=== PATIENT | male | born 1975 | race Caucasian/White ===

== ENCOUNTER 2017-02-16 11:07 | Emergency (ER) | payer BC, OTHER ==
[2017-02-16 11:44] VITALS: BP 134/69
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
[2017-02-16] MEDS ORDERED: Ibuprofen TAB* 400 MG PO ONE (12:19)
== END 2017-02-16 12:26 | disposition home or self-care (01) ==
LOC: UCCORT 11:07
DX: S09.8XXA Other specified injuries of head, initial encounter (principal); Y04.0XXA Assault by unarmed brawl or fight, initial encounter; Y93.9 Activity, unspecified; Y99.9 Unspecified external cause status; E11.9 Type 2 diabetes mellitus without complications; Z79.4 Long term (current) use of insulin; J45.909 Unspecified asthma, uncomplicated
CPT/HCPCS: 99212; A9270-GY; G0463

== ENCOUNTER 2017-02-17 09:45 | Emergency (ER) | payer OTHER ==
[2017-02-17 11:17] VITALS: BP 115/68
--- NOTE | 2017-02-17 11:52 | RAD ---
Indication: Neck pain with radiation to the shoulder blades. Fell hitting head yesterday. Comparison: November 25, 2010 Technique: AP, open-mouth odontoid, lateral, swimmer's, and oblique views cervical spine. Report: Straightening relative to normal cervical lordosis similar to the prior exam without facet subluxation at any level. Negative for vertebral body posterior element fracture. Multilevel mild vertebral endplate osteophytosis. Moderate C5-C6 and C6-C7 disc space narrowing. The oblique views are negative for osseous foraminal stenosis. 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 Unremarkable prevertebral soft tissue contours. IMPRESSION: 1. Straightening relative to normal cervical lordosis similar to the prior exam without facet subluxation at any level. 2. Negative for fracture. 3. Progression of multilevel degenerative spondylosis compared with the 2011 exam.
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
== END 2017-02-17 12:07 | disposition home or self-care (01) ==
LOC: UCCORT 09:45
DX: S16.1XXD Strain of muscle, fascia and tendon at neck level, subsequent encounter (principal); W50.0XXD Accidental hit or strike by another person, subsequent encounter; E11.9 Type 2 diabetes mellitus without complications; I10 Essential (primary) hypertension; J45.909 Unspecified asthma, uncomplicated
CPT/HCPCS: 72050; 99212; G0463

== ENCOUNTER 2017-07-20 08:23 | Emergency (ER) | payer BC, OTHER ==
[2017-07-20 08:32] VITALS: BP 135/76
--- NOTE | 2017-07-20 08:50 | UC ---
Respiratory Complaint HPI - HPI Summary HPI Summary: 2 weeks of continuing bronchial tightness with cough, - History of Current Complaint Chief Complaint: UCRespiratory Stated Complaint: COLD SYMPTOMS Time Seen by Provider: 07/20/17 08:41 Hx Obtained From: Patient Onset/Duration: Gradual Onset, Lasting Weeks - 2, Still Present Timing: Constant Severity Initially: Mild Severity Currently: Moderate Pain Intensity: 3 Pain Scale Used: 0-10 Numeric Character: Cough: Productive, Sputum Description: - thick green Aggravating Factors: Nothing Alleviating Factors: Nothing Associated Signs And Symptoms: Positive: Pleuritic Chest Pain, Wheezing, URI - Allergies/Home Medications Allergies/Adverse Reactions: Allergies Allergy/AdvReac Type Severity Reaction Status Date / Time No Known Allergies Allergy Verified 07/20/17 08:33 PMH/Surg Hx/FS Hx/Imm Hx Previously Healthy: No Endocrine History: Diabetes GI/ History: Other Other GI/ History: Pancreatitis - Surgical History Surgical History: Yes Surgery Procedure, Year, and Place: 8 sets EAR TUBE SURGERIES R/L A CHILD, [place]. 1998; RIGHT KNEE, [facility]. 1996 TONSILECTOMY [facility]. LEFT KNEE REPAIR JANUARY 2013 [facility] - Family History Known Family History: Positive: None, Cardiac Disease, Hypertension, Diabetes - Social History Occupation: Employed Full-time Lives: With Family Alcohol Use: None Alcohol Amount: once a week Substance Use Type: None Smoking Status (MU): Never Smoked Tobacco - Immunization History Most Recent Influenza Vaccination: NONE Review of Systems Constitutional: Negative Skin: Negative Eyes: Negative ENT: Ear Ache, Nasal Discharge Respiratory: Cough Cardiovascular: Negative Gastrointestinal: Negative Genitourinary: Negative Motor: Negative Neurovascular: Negative Musculoskeletal: Negative Neurological: Negative Psychological: Negative Is Patient Immunocompromised?: No All Other Systems Reviewed And Are Negative: Yes Physical Exam Triage Information Reviewed: Yes Appearance: Well-Appearing, No Pain Distress, Obese Vital Signs: Initial Vital Signs Temp 96.5 F 07/20/17 08:27 Pulse 77 07/20/17 08:27 Resp 18 07/20/17 08:27 BP 135/76 07/20/17 08:27 Pulse Ox 98 07/20/17 08:27 Vital Signs Reviewed: Yes Eye Exam: Normal Eyes: Positive: Conjunctiva Clear ENT Exam: Normal ENT: Positive: Normal ENT inspection, Hearing grossly normal, Pharynx normal, TMs normal. Negative: Nasal congestion, Nasal drainage, Trismus, Muffled/ hoarse voice Dental Exam: Normal Neck exam: Normal Neck: Positive: Supple, Nontender, No Lymphadenopathy Respiratory Exam: Normal Respiratory: Positive: Chest non-tender, No respiratory distress, No accessory muscle use, Wheezing Cardiovascular Exam: Normal Cardiovascular: Positive: RRR, No Murmur, Pulses Normal, Brisk Capillary Refill Musculoskeletal Exam: Normal Musculoskeletal: Positive: Strength Intact, ROM Intact, No Edema Neurological Exam: Normal Neurological: Positive: Alert, Muscle Tone Normal Psychological Exam: Normal Skin Exam: Normal UC Diagnostic Evaluation - Laboratory O2 Sat by Pulse Oximetry: 98 Respiratory Course/Dx - Course Course Of Treatment: Biaxin, albuterol, robitussin and codiene increase fluids follow with pcp - Differential Dx/Diagnosis Provider Diagnoses: Acute Bronchitis with Bronchospasms Discharge - Discharge Plan Condition: Stable Disposition: HOME Prescriptions: Albuterol HFA INHALER* [Ventolin HFA Inhaler*] 2 puff INH Q4H PRN #1 mdi PRN Reason: cough/wheeze Clarithromycin TAB* [Biaxin 500 MG TAB*] 500 mg PO BID #20 tab guaiFENesin/CODIEN 100MG-10MG* [Robitussin AC 100Mg-10Mg*] 10 ml PO Q4H PRN # 120 ml MDD 60 PRN Reason: cough Patient Education Materials: How to Use a Metered-Dose Inhaler (ED), Acute Bronchitis (ED) Referrals: Ramonita Faye MD [Primary Care Provider] - If Needed
== END 2017-07-20 09:09 | disposition home or self-care (01) ==
LOC: UCCORT 08:23
DX: J20.9 Acute bronchitis, unspecified (principal); E11.9 Type 2 diabetes mellitus without complications
CPT/HCPCS: 99212; G0463

== ENCOUNTER 2017-08-30 12:38 | Emergency (ER) | payer BC ==
[2017-08-30 15:56] VITALS: BP 128/69
--- NOTE | 2017-08-30 16:21 | UC ---
Respiratory Complaint HPI - HPI Summary HPI Summary: Started URI x 3 days. Worse last night with wheezing. - History of Current Complaint Chief Complaint: UCRespiratory Stated Complaint: CHEST RONALD,ST Time Seen by Provider: 08/30/17 16:11 Hx Obtained From: Patient Onset/Duration: Sudden Onset, Lasting Days - 3, Worse Since - last night Timing: Constant Severity Initially: Mild Severity Currently: Moderate Character: Cough: Nonproductive Associated Signs And Symptoms: Positive: Dyspnea, Wheezing, URI, Nasal Congestion, Hoarseness. Negative: Fever, Chills Related History: Seasonal Allergies - Allergies/Home Medications Allergies/Adverse Reactions: Allergies Allergy/AdvReac Type Severity Reaction Status Date / Time No Known Allergies Allergy Verified 08/30/17 15:50 PMH/Surg Hx/FS Hx/Imm Hx Endocrine History: Diabetes Cardiovascular History: Hypertension - Surgical History Surgical History: Yes Surgery Procedure, Year, and Place: 8 sets EAR TUBE SURGERIES R/L A CHILD, [place]. 1998; RIGHT KNEE, [facility]. 1996 TONSILECTOMY [facility]. LEFT KNEE REPAIR JANUARY 2013 [facility] - Family History Known Family History: Positive: None, Cardiac Disease, Hypertension, Diabetes - Social History Occupation: Employed Full-time Lives: With Family Alcohol Use: None Alcohol Amount: once a week Substance Use Type: None Smoking Status (MU): Never Smoked Tobacco - Immunization History Most Recent Influenza Vaccination: no Review of Systems ENT: Sore Throat Respiratory: Shortness Of Breath, Cough Is Patient Immunocompromised?: No All Other Systems Reviewed And Are Negative: Yes Physical Exam Triage Information Reviewed: Yes Appearance: No Pain Distress, Ill-Appearing, Obese Vital Signs: Initial Vital Signs Temp 97.2 F 08/30/17 15:51 Pulse 80 08/30/17 15:51 Resp 18 08/30/17 15:51 BP 128/69 08/30/17 15:51 Pulse Ox 98 08/30/17 15:51 Vital Signs Reviewed: Yes Eyes: Positive: Conjunctiva Clear ENT: Positive: Pharynx normal, Nasal congestion, TM dull - , not visable AD Neck exam: Normal Respiratory: Positive: Wheezing - Diffuse expiratory wheezes. Cardiovascular Exam: Normal Musculoskeletal Exam: Normal Neurological Exam: Normal Psychological Exam: Normal Skin Exam: Normal UC Diagnostic Evaluation - Laboratory O2 Sat by Pulse Oximetry: 98 Respiratory Course/Dx - Differential Dx/Diagnosis Differential Diagnosis/HQI/PQRI: Asthma, Exacerbation Of COPD, Sinusitis Provider Diagnoses: Acute URI. Acute bronchospasm Discharge - Discharge Plan Condition: Stable Disposition: HOME Prescriptions: Albuterol HFA INHALER* [Ventolin HFA Inhaler*] 2 puff INH Q4H PRN #1 mdi PRN Reason: Wheezing predniSONE TAB* [Deltasone TAB*] 20 mg PO DAILY #18 tab Patient Education Materials: Upper Respiratory Infection (ED), Bronchospasm (ED ) Referrals: Ramonita Faye MD [Primary Care Provider] -
== END 2017-08-30 16:30 | disposition home or self-care (01) ==
LOC: UCCORT 12:38
DX: J06.9 Acute upper respiratory infection, unspecified (principal); J98.01 Acute bronchospasm; E11.9 Type 2 diabetes mellitus without complications; I10 Essential (primary) hypertension; E66.9 Obesity, unspecified
CPT/HCPCS: 99212; G0463

== ENCOUNTER 2017-11-09 15:31 | Emergency (ER) | payer BC ==
[2017-11-09 18:59] VITALS: BP 141/74
--- NOTE | 2017-11-09 19:08 | ED ---
Throat Pain/Nasal Congestion - HPI Summary HPI Summary: 41 yr old with the complaint of sinus pressure, post nasal drip, coughing, and left ear pain. He states he has had symptoms for 5 days. he feels he has a sinus infection. He has had them before. Denies smoking. - History of Current Complaint Chief Complaint: UCRespiratory Time Seen by Provider: 11/09/17 18:52 - Allergies/Home Medications Allergies/Adverse Reactions: Allergies Allergy/AdvReac Type Severity Reaction Status Date / Time No Known Allergies Allergy Verified 11/09/17 18:59 PMH/Surg Hx/FS Hx/Imm Hx Endocrine/Hematology History: Reports: Hx Diabetes - type II Denies: Hx Thyroid Disease Cardiovascular History: Reports: Hx Hypertension - borderline, not on meds Denies: Hx Pacemaker/ICD, Other Cardiovascular Problems/Disorders Respiratory History: Reports: Hx Asthma, Hx Sleep Apnea Denies: Hx Chronic Obstructive Pulmonary Disease (COPD), Hx Lung Cancer, Other Respiratory Problems/Disorders GI History: Denies: Hx Ulcer, Other GI Disorders Musculoskeletal History: Denies: Hx Rheumatoid Arthritis, Hx Osteoporosis Sensory History: Reports: Hx Contacts or Glasses - no glasses inst for day of surgery Denies: Hx Hearing Aid Opthamlomology History: Reports: Hx Contacts or Glasses - no glasses inst for day of surgery Neurological History: Denies: Hx Transient Ischemic Attacks (TIA), Other Neuro Impairments/ Disorders Psychiatric History: Denies: Hx Anxiety, Hx Panic Disorder - Surgical History Surgery Procedure, Year, and Place: 8 sets EAR TUBE SURGERIES R/L A CHILD, [place]. 1998; RIGHT KNEE, [facility]. 1996 TONSILECTOMY [facility]. LEFT KNEE REPAIR JANUARY 2013 [facility] Hx Anesthesia Reactions: Yes - NAUSEA AND VOMITING Infectious Disease History: No Infectious Disease History: Denies: Hx Clostridium Difficile, Hx Hepatitis, Hx Human Immunodeficiency Virus (HIV), Hx of Known/Suspected MRSA, Hx Shingles, Hx Tuberculosis, Hx Known/ Suspected VRE, Hx Known/Suspected VRSA, History Other Infectious Disease, Traveled Outside the in Last 30 Days - Family History Known Family History: Positive: None, Cardiac Disease, Hypertension, Diabetes - Social History Alcohol Use: None Alcohol Amount: once a week Substance Use Type: Reports: None Smoking Status (MU): Never Smoked Tobacco Review of Systems Constitutional: Negative Positive: Ear Ache, Nasal Discharge, Other - post nasal drip and sinus pressure Positive: Cough All Other Systems Reviewed And Are Negative: Yes Physical Exam Triage Information Reviewed: Yes Vital Signs On Initial Exam: Initial Vitals Temp Pulse Resp BP Pulse Ox 97.9 F 78 16 141/74 98 11/09/17 18:52 11/09/17 18:52 11/09/17 18:52 11/09/17 18:52 11/09/17 18:52 Vital Signs Reviewed: Yes Appearance: Positive: Well-Appearing, No Pain Distress Skin: Positive: Warm, Skin Color Reflects Adequate Perfusion Head/Face: Positive: Normal Head/Face Inspection Eyes: Positive: EOMI ENT: Positive: Nasal congestion, TM red - left, Sinus tenderness Neck: Positive: Supple, Nontender Respiratory/Lung Sounds: Positive: Clear to Auscultation, Breath Sounds Present Cardiovascular: Positive: RRR. Negative: Murmur Abdomen Description: Positive: Nontender Musculoskeletal: Positive: Strength/ROM Intact Neurological: Positive: Sensory/Motor Intact, Alert, Oriented to Person Place, Time, CN Intact II-III Psychiatric: Positive: Normal - [place] Coma Scale Best Eye Response: 4 - Spontaneous Best Motor Response: 6 - Obeys Commands Best Verbal Response: 5 - Oriented Coma Scale Total: 15 Diagnostics - Vital Signs Vital Signs Temp Pulse Resp BP Pulse Ox 11/09/17 18:52 97.9 F 78 16 141/74 98 - Laboratory Lab Statement: Any lab studies that have been ordered have been reviewed, and results considered in the medical decision making process. EENT Course/Dx - Course Course Of Treatment: 41 yr old with sinus infection. Rx with Augmentin. Dc home. - Diagnoses Provider Diagnoses: Sinusitis Discharge - Discharge Plan Condition: Good Disposition: HOME Prescriptions: Amoxicillin/Clavulanate TAB* [Augmentin TAB 875*] 875 mg PO BID #10 tab Patient Education Materials: Sinusitis (ED) Forms: *Work Release Referrals: Ramonita Faye MD [Primary Care Provider] -
== END 2017-11-09 19:16 | disposition home or self-care (01) ==
LOC: UCCORT 15:31
DX: J32.9 Chronic sinusitis, unspecified (principal); Z72.89 Other problems related to lifestyle
CPT/HCPCS: 99212; G0463

== ENCOUNTER 2017-11-28 21:50 | Emergency (ER) | payer BC ==
--- NOTE | 2017-11-28 22:07 | UC ---
Respiratory Complaint HPI - HPI Summary HPI Summary: C/O URI symptoms. Productive cough. Wheezing. - History of Current Complaint Stated Complaint: COUGH,LIGHT HEADED Time Seen by Provider: 11/28/17 21:59 Hx Obtained From: Patient Onset/Duration: Sudden Onset, Lasting Days - 2, Worse Since - today Timing: Constant Severity Initially: Mild Severity Currently: Moderate Character: Cough: Productive Aggravating Factors: Deep Breaths, Recumbent Position Associated Signs And Symptoms: Positive: Dyspnea, Pleuritic Chest Pain, Wheezing , URI, Nasal Congestion Related History: Seasonal Allergies - Allergies/Home Medications Allergies/Adverse Reactions: Allergies Allergy/AdvReac Type Severity Reaction Status Date / Time No Known Allergies Allergy Verified 11/28/17 21:58 PMH/Surg Hx/FS Hx/Imm Hx Endocrine History: Diabetes Respiratory History: Asthma - Surgical History Surgical History: Yes Surgery Procedure, Year, and Place: 8 sets EAR TUBE SURGERIES R/L A CHILD, [place]. 1998; RIGHT KNEE, [facility]. 1996 TONSILECTOMY [facility]. LEFT KNEE REPAIR JANUARY 2013 [facility] - Family History Known Family History: Positive: Cardiac Disease, Hypertension, Diabetes - Social History Occupation: Employed Full-time Lives: With Family Alcohol Use: None Alcohol Amount: once a week Substance Use Type: None Smoking Status (MU): Never Smoked Tobacco Have You Smoked in the Last Year: No - Immunization History Most Recent Influenza Vaccination: no Review of Systems Constitutional: Chills Respiratory: Shortness Of Breath, Cough Cardiovascular: Chest Pain - with coughing Is Patient Immunocompromised?: No All Other Systems Reviewed And Are Negative: Yes Physical Exam Triage Information Reviewed: Yes Appearance: No Pain Distress, Ill-Appearing, Obese Vital Signs Reviewed: Yes Eyes: Positive: Conjunctiva Clear ENT: Positive: Pharynx normal. Negative: TMs normal - left TM with perforation. Right TM not visable with wax. Neck exam: Normal Respiratory: Positive: Wheezing - mild expiratory wheezes Cardiovascular Exam: Normal Musculoskeletal Exam: Normal Neurological Exam: Normal Neurological: Positive: Fatigued Psychological Exam: Normal Skin Exam: Normal Respiratory Course/Dx - Differential Dx/Diagnosis Differential Diagnosis/HQI/PQRI: Asthma, Lower Resp Infection, Sinusitis Provider Diagnoses: Acute URI. Asthma with acute exacerbation Discharge - Discharge Plan Condition: Stable Disposition: HOME Prescriptions: predniSONE TAB* [Deltasone TAB*] 20 mg PO DAILY #18 tab Patient Education Materials: Upper Respiratory Infection (ED), Wheezing (ED), Prednisone (By mouth) Referrals: Ramonita Faye MD [Primary Care Provider] -
[2017-11-28 22:13] VITALS: BP 154/77
[2017-11-28] MEDS ORDERED: predniSONE TAB* 20 MG PO ONE (22:13)
== END 2017-11-28 22:23 | disposition home or self-care (01) ==
LOC: UCCORT 21:50
DX: J06.9 Acute upper respiratory infection, unspecified (principal); J45.901 Unspecified asthma with (acute) exacerbation
CPT/HCPCS: 99212; G0463; J7512

== ENCOUNTER 2018-09-16 12:37 | Emergency (ER) | payer BC ==
--- OUTSIDE RECORDS SUMMARY | 2018-09-16 12:46 | XMS REPORT ---
:1975 External Reference #:[id number] Author Organization [facility] Address [address], [address] [place] [address] Phone [phone] Care Team Providers Name Role Phone Ramonita Faye MD Care Team Information Slot Operations Manager Unavailable Benoit Hu NP Primary Care Physician Unavailable Payers Type Date Identification Numbers Payment Provider Subscriber Commercial Policy Number: [id number] Mauro Beasley PayID: [id number] [address] [address] [place] [address] Problems Date Description Provider Status Onset: 08/01/2016 Chest pain Komal Frazier., ANP Active Onset: 08/01/2016 Dyspnea Komal Frazier., ANP Active Onset: 08/01/2016 Palpitations Komal Frazier., ANP Active Onset: 08/01/2016 Obesity Komal Frazier., ANP Active Onset: 08/01/2016 Mixed hyperlipidemia Komal Frazier., ANP Active Onset: 10/08/2017 Essential hypertension Sinan Meléndez M.D., Active FACC Onset: 10/08/2017 Type 2 diabetes mellitus Sinan Meléndez M.D., Active FACC Onset: 09/03/2016 History of polyp of colon Ab Bravo MD Active Onset: 09/03/2016 Pancreatitis Ab Bravo MD Active Onset: 09/03/2016 Other diseases of stomach and Ab Bravo MD Active duodenum Onset: 09/03/2016 Chronic nonalcoholic liver Ab Bravo MD Active disease Family History Date Family Member(s) Problem(s) Comments Father due to Diabetes () Father Stroke Father due to Stroke () Father Hypertension Father Diabetes Mother Diverticulitis Mother Atrial Fibrillation First Brother 40 Paternal Grandfather due to Unknown Causes () Paternal Grandfather Diabetes Paternal Grandmother Pancreatic Cancer : (age 82 Paternal Grandmother due to Pancreatic Years) Cancer Onset: (age 80 Years) Maternal Grandmother Colon Cancer : (age 84 Maternal Grandmother due to Colon Cancer Years) Social History Type Date Description Comments Marital Status Lives With Lives With Child 4 total Home Environment Lives With Diet Patient is on a low carb diet 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 - [employer] 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 Working ADL's/IADL's Independent with all ADL's Cigarette Use Never Smoked Cigarettes ETOH Use Denies alcohol use Smoking Patient denies history of smoking Recreational Drug Use Denies Drug Use Daily Caffeine Consumes on average 2 cups of regular coffee per day Exercise Type/Frequency Exercises regularly Allergies, Adverse Reactions, Alerts Date Description Reaction Status Severity Comments 01/03/2013 NKDA active Medications Medication Date Status Form Strength Qnty SIG Indications Ordering Provider Fenofibrate 08/18/ Active Capsules 200mg 90cap 1 by mouth E78.2 Melissa Berger 2015 s every day Yonatan Gillette Metformin HCL / Active Tablets 500mg 1 tab by Unknown ER (Mod) 0000 ER 24HR mouth twice a day Glipizide / Active Tablets 5mg 1 po bid Law, 0000 MD Mc Lantus / Active Solution 100Unit/M 27units once E11.9 Unknown 0000 L daily Humalog Kwikpen 08/18/ Hx Solution 100Unit/M 15uni 15u before E11.9 Ranjit2015 - Pen-Injec L ts meals Leta, M.D. 2016 Invokana 08/18/ Hx Tablets 100mg 90tab 1 by mouth E11.2015 - s every day , M.D. 2016 Lantus Solostar 08/18/ Hx Solution 100Unit/M 15uni 50u E11.2015 Pen-Injec L ts subcutaneous , every day M.D. Multivitamins 00/00/ Hx Tablets 1 po qd Unknown 0000 Tricor / Hx Tablets 145mg one Po q day. Valdez, 0000 MD Korey Lange / Hx Solution 100Unit/M s/s before Unknown 0000 - Pen-Injec L meals 2015 Lantus Solostar / Hx Solution 100Unit/M 30u Unknown 0000 - Pen-Injec L subcutaneous every day 2015 Fenofibrate / Hx Tablets 145mg 1 by mouth Unknown 0000 every day Naproxen Sodium / Hx Capsules 220mg as needed Unknown 0000 - 2016 Oxycodone-Aceta / Hx Tablets 5-325mg 1-2 by mouth Unknown minophen 0000 every 4 hours as needed for pain Ondansetron / Hx Tablets 4mg 1 by mouth Unknown 0000 - Dispers every 4 hour as needed 2016 Vital Signs Date Vital Result Comment 08/12/2018 BP Systolic Sitting Left Arm 138 mmHg BP Diastolic Sitting Left Arm 84 mmHg Heart Rate 88 /min Respiratory Rate 18 /min Height 69 inches 5'9" Weight 383.00 lb BMI (Body Mass Index) 56.6 kg/m2 BSA (Body Surface Area) 2.72 m2 [place] body weight in kilograms 73 10/08/2017 BP Systolic Sitting Left Arm 134 mmHg BP Diastolic Sitting Left Arm 84 mmHg Heart Rate 75 /min Respiratory Rate 14 /min Height 69 inches 5'9" Weight 340.00 lb BMI (Body Mass Index) 50.2 kg/m2 BSA (Body Surface Area) 2.59 m2 [place] body weight in kilograms 73 10/06/2017 BP Systolic Sitting Right Arm 128 mmHg BP Diastolic Sitting Right Arm 74 mmHg Heart Rate 80 /min Respiratory Rate 18 /min Height 69 inches 5'9" Weight 340.00 lb BMI (Body Mass Index) 50.2 kg/m2 BSA (Body Surface Area) 2.59 m2 [place] body weight in kilograms 73 O2 % BldC Oximetry 95 % room air 08/13/2017 BP Systolic Sitting Right Arm 124 mmHg BP Diastolic Sitting Right Arm 77 mmHg Heart Rate 76 /min Height 69 inches 5'9" Weight 340.00 lb BMI (Body Mass Index) 50.2 kg/m2 BSA (Body Surface Area) 2.59 m2 [place] body weight in kilograms 73 09/03/2016 BP Systolic Sitting Left Arm 122 mmHg BP Diastolic Sitting Left Arm 82 mmHg Heart Rate 82 /min Respiratory Rate 16 /min Height 69 inches 5'9" Weight 370.00 lb BMI (Body Mass Index) 54.6 kg/m2 BSA (Body Surface Area) 2.68 m2 08/18/2016 BP Systolic 138 mmHg BP Diastolic 90 mmHg Height 69 inches 5'9" Weight 380.00 lb BMI (Body Mass Index) 56.1 kg/m2 BSA (Body Surface Area) 2.71 m2 07/31/2016 BP Systolic Sitting Left Arm 144 mmHg BP Diastolic Sitting Left Arm 88 mmHg Heart Rate 98 /min Respiratory Rate 20 /min Height 69 inches 5'9" Weight 399.00 lb BMI (Body Mass Index) 58.9 kg/m2 BSA (Body Surface Area) 2.77 m2 01/03/2013 BP Systolic Sitting Right Arm 150 mmHg BP Diastolic Sitting Right Arm 92 mmHg Heart Rate 88 /min Respiratory Rate 18 /min Height 69 inches 5'9" Weight 379.00 lb BMI (Body Mass Index) 56.0 kg/m2 Results Test Date Test Result H/L Range Note Urine Dipstick 08/12/2018 Ua Leuko - Negative Ua Nitrite - Negative Ua Urobilinogen - Low 0.2 - 1.0 E.U./dL Ua Protein - Negative Ua PH 6.5 6.5-7.5 Ua Blood - Negative Ua Specific [place] 1.015 1.010-1.030 Ua Ketones - Negative Ua Bilirubin - Negative Ua Glucose - Negative Celiac Disease Comp PNL 10/10/2016 Immunoglobulin A 281 mg/dL 90-386 1 Antigliadin Abs, IgG 2 units 0-19 1, 2 Antigliadin Abs, IgA 3 units 0-19 1, 3 Endomysial IgA Antibody Negative Negative 1 t-Transglutaminase IgA <2 U/mL 0-3 1, 4 t-Transglutaminase IgG <2 U/mL 0-5 1, 5 Glycohemoglobin A1c 10/10/2016 Glycohemoglobin (A1c) 6.0 % 4.2-6.3 1, 6 eAG 126 mg/dL 1 CBS W/Automated Diff 10/10/2016 White Blood Count 5.5 K/uL 3.4-10.5 1 Red Blood Count 5.17 M/uL 4.20-5.80 1 Hemoglobin 14.6 gm/dL 12.8-17.0 1 Hematocrit 45.2 % 38.0-48.0 1 Mean Cell Volume 87.4 fl 80.0-96.0 1 Mean Corpuscular HGB 28.2 pg 27.0-33.0 1 Mean Corpuscular HGB Conc 32.3 g/dL 31.7-36.0 1 Platelet Count 213 K/uL 150-400 1 Red Cell Distri Width SD 43.3 fl 36-51 1 Red Cell Distri Width %CV 13.9 % 11.6-15.8 1 Mean Platelet Volume 9.7 fL 6.6-10.6 1 Neut% 58.0 % 33.0-73.0 1 Lymph % 31.8 % 17.0-56.0 1 [place] % 8.4 % 0.0-10.0 1 Eo% 1.6 % 0.0-5.0 1 Bas% 0.2 % 0.1-1.0 1 Neut# 3.17 K/uL 1.8-7.0 1 Lymph # 1.74 K/uL Low 1.8-7.0 1 [place] # 0.46 K/uL 0.0-0.8 1 Eos # 0.09 K/uL 0.0-0.5 1 Baso # 0.01 K/uL Low 0.1-0.2 1 Laboratory test finding 10/10/2016 Sedimentation Rate 2 mm/hr 0-15 1 Liver Function Tests 10/10/2016 Total Protein 9.0 g/dL High 6.4-8.2 1 Albumin 4.7 g/dL 3.4-5.0 1 Globulin 4.3 g/dL 1.9-4.3 1 Alb/Glob 1.1 ratio 1 Bilirubin,Total 0.8 mg/dL 0.2-1.0 1 Bilirubin,Direct 0.2 mg/dL 0.0-0.2 1 Bilirubin,Indirect 0.6 mg/dL 0.0-0.9 1 Sgot/Ast 23 U/L 15-37 1 SGPT/Alt 34 U/L 12-78 1 Alkaline Phosphatase 36 U/L Low 45-117 1 Basic Metabolic Panel 10/10/2016 Glucose 94 mg/dL 74-106 1 BUN 18 mg/dL 7-18 1 Creatinine 1.0 mg/dL 0.6-1.3 1 Glom Filtration Rate, Estimate >60 mL/min >60 1 If >60 mL/min >60 1, 7 BUN/Creat 18.0 ratio 1 Sodium 139 mmol/L 136-145 1 Potassium 3.7 mmol/L 3.5-5.1 1 Chloride 102 mmol/L 98-107 1 Carbon Dioxide 27 mmol/L 21-32 1 Anion Gap 10 mEq/L 8-16 1 Calcium 9.6 mg/dL 8.5-10.1 1 LDL Cholesterol Profile 10/10/2016 Cholesterol 127 mg/dL <200 1, 8 Triglycerides 136 mg/dL <150 1, 9 HDL Cholesterol 35 mg/dL Low >40 1, 10 LDL-Cholesterol 65 mg/dL < 100 1, 11 Laboratory test finding 10/10/2016 Amylase 32 U/L 25-115 1 Lipase 97 U/L 73-393 1 Hepatitis C Antibody 10/10/2016 Hepatitis C Antibody Nonreactive Nonreactive 1 Signal/Cutoff ratio < 0.02 <0.80 1, 12 Laboratory test finding 10/10/2016 Ceruloplasmin 27.2 mg/dL 16.0-31.0 1 [place] Fibrosure 10/10/2016 [place] Fibrosis Score 0.13 0.00-0.21 1 [place] Fibrosis Stage (SEE NOTE) 1, 13 [place] Steatosis Score 0.94 High 0.00-0.30 1 [place] Steatosis Grade (SEE NOTE) 1, 14 [place] Score 0.50 0.25 1 [place] Grade (SEE NOTE) 1, 15 Height 69 Inches . 1 Weight Measured 370 LBS . 1 Analysis . 1 Ctyqu-4-Ekrmbsvpxcmir 160 mg/dL 110-276 1 Haptoglobin 145 mg/dL 34-200 1 Apolipoprotein A-1 111 mg/dL 101-178 1 Bilirubin,Total 0.5 mg/dL 0.0-1.2 1 GGT 15 IU/L 0-65 1 Alt (SGPT) 23 IU/L 0-55 1 Alt (Sgot) P5P 26 IU/L 0-40 1 Cholesterol,Total 130 mg/dL 100-199 1 Glucose, Serum 101 mg/dL High 65-99 1 Triglycerides 130 mg/dL 0-149 1 [place] Interpretations: (SEE NOTE) 1, 16 Fibrosis Scoring (SEE NOTE) 1, 17 Steatosis Grading (SEE NOTE) 1, 18 [place] Scoring (SEE NOTE) 1, 19 [place] Limitations (SEE NOTE) 1, 20 [place] Comment 2 (SEE NOTE) 1, 21 @Frozen: @#[id number] 3.5ML <SEE NOTE> 1, @ @ANKITA FIBROSURE 1 @ @40YO MALE 370LB <SEE NOTE> 1, 23 Laboratory test finding 08/13/2016 Bedside Glucose 270 High 70-110 Laboratory test finding 08/13/2016 Anion Gap 13 8-16 BUN/Creatinine Ratio 20.0 Blood Urea Nitrogen 14 7-18 Calcium Level 7.5 Low 8.5-10.1 Carbon Dioxide Level 26 21-32 Chloride Level 97 Low 98-107 Creatinine 0.7 0.6-1.3 Glucose Screen 306 High 74-106 Lipase 432 High 73-393 Potassium Level 3.8 3.5-5.1 Sodium Level 136 136-145 Magnesium Level 08/13/2016 Magnesium Level 2.0 1.8-2.4 Laboratory test finding 08/12/2016 Alanine Aminotransferase 36 12-78 (Alt/SGPT) Albumin 2.3 Low 3.4-5.0 Albumin/Globulin Ratio 0.5 Alkaline Phosphatase 41 Low 45-117 Globulin 5.0 High 1.9-4.3 Hematocrit 41.3 38.0-48.0 Hemoglobin 13.3 12.8-17.0 Mean Corpuscular Hemoglobin 31.1 27.0-33.0 Mean Corpuscular Hemoglobin Concent 32.2 31.7-36.0 Mean Corpuscular Volume 96.5 High 80.0-96.0 Mean Platelet Volume 11.3 High 6.6-10.6 Platelet Count 206 150-400 RDW Coefficient of Variation 13.7 11.6-15.8 Red Blood Count 4.28 4.20-5.80 Total Bilirubin 1.0 0.2-1.0 Total Protein 7.3 6.4-8.2 White Blood Count 6.7 3.4-10.5 Aspartate Amino 08/12/2016 Aspartate Amino 29 15-37 Transf (Ast/Sgot) Transf (Ast/Sgot) C-Reactive Protein, 08/12/2016 C-Reactive Protein, 436.0 High <3.0 Quantitative Quantitative Respiratory Culture 08/11/2016 Respiratory Culture Respiratory Annette Urine Legionella 08/11/2016 Urine Legionella Negative Negative pneumophilia Ag pneumophilia Ag Laboratory test 08/11/2016 Basophils # (Auto) 0.01 Low 0.1-0.2 finding Basophils (%) (Auto) 0.2 0.1-1.0 Eosinophils # (Auto) 0.01 0.0-0.5 Eosinophils (%) (Auto) 0.2 0.0-5.0 Lymphocytes (%) (Auto) 13.7 Low 17.0-56.0 Monocytes # (Auto) 0.62 0.0-0.8 Monocytes (%) (Auto) 9.4 0.0-10.0 Neutrophils (%) (Auto) 76.5 High 33.0-73.0 Red Cell Distribution Width 45.0 36-51 Lymphocytes # (Auto) 08/11/2016 Lymphocytes # (Auto) 0.90 Low 1.8-7.0 Neutrophils # (Auto) 08/11/2016 Neutrophils # (Auto) 5.04 1.8-7.0 Aerobic Blood Culture 08/10/2016 Aerobic Blood Culture No Growth: Final Report Anaerobic Blood 08/10/2016 Anaerobic Blood No Growth: Culture Culture Final Report Lactic Acid Level 08/10/2016 Lactic Acid Level 1.3 0.4-1.9 Ray Test 08/10/2016 Ray Test Yes Arterial Blood Base 08/10/2016 Arterial Blood Base -2 -2-2 Excess Excess Arterial Blood Hco3 08/10/2016 Arterial Blood Hco3 23 22-26 Arterial Blood Oxygen 08/10/2016 Arterial Blood Oxygen 89 Low 90-99 Saturation Saturation Arterial Blood pCO2 08/10/2016 Arterial Blood pCO2 41 35-45 at Patient Temp at Patient Temp Arterial Blood pH at 08/10/2016 Arterial Blood pH at 7.37 7.35-7.45 Patient Temp Patient Temp Estimated Average 08/10/2016 Estimated Average 258 Glucose (eAG) Glucose (eAG) Laboratory test 08/10/2016 Hemoglobin A1c 10.6 High 4.2-6.3 finding Urine Specific 08/10/2016 Urine Specific 1.020 1.010-1.030 [place] Urine Clarity 08/10/2016 Urine Clarity Clear Clear Urine Blood 08/10/2016 Urine Blood Trace Negative Arterial Blood pO2 at 08/10/2016 Arterial Blood pO2 at 53 Low 80-105 Patient Temp Patient Temp Blood Gas Puncture 08/10/2016 Blood Gas Puncture L.Rad.Art. Site Site Blood Gas Specimen 08/10/2016 Blood Gas Specimen Room Air Type Type Miscellaneous Test 08/10/2016 Miscellaneous Test Test(s) added Comment Comment Cholesterol Level 08/10/2016 Cholesterol Level 503 High <200 HDL Cholesterol 08/10/2016 HDL Cholesterol 39 Low >40 Triglycerides Level 08/10/2016 Triglycerides Level 3119 High <150 Laboratory test 08/10/2016 Band Neutrophils % 42 High 0-8 finding Neutrophils % 36 33-73 Urine Bilirubin Small High Negative Urine Color DK Yellow Yellow Urine Ketones 15 High Negative Urine Leukocyte Esterase Negative Negative Urine Nitrite Negative Negative Urine Protein Negative Negative Urine Urobilinogen 0.2 0.2-1.0 Urine pH 5.5 Low 6.5-7.5 Total Creatine Kinase 08/10/2016 Total Creatine Kinase 167 39-308 Platelet Estimate 08/10/2016 Platelet Estimate 207 Pathologist Review 08/10/2016 Pathologist Review Indicated,Slselvin (Hematology) (Hematology) de Sent Metamyelocytes % 08/10/2016 Metamyelocytes % 2 High -0 Manual Slide Review 08/10/2016 Manual Slide Review See Note 24 (Hematology) (Hematology) Lymphocytes % 08/10/2016 Lymphocytes % 15 Low 17-56 Differential Total 08/10/2016 Differential Total 100 Cells Counted Cells Counted Atypical Lymphocytes % 08/10/2016 Atypical Lymphocytes % 5 0-7 1 K76.0 K31.89 E78.2 E11.9 R53.83 2 Negative 0 - 19 Weak Positive 20 - 30 Moderate to Strong Positive >30 3 Negative 0 - 19 Weak Positive 20 - 30 Moderate to Strong Positive >30 4 Negative 0 - 3 Weak Positive 4 - 10 Positive >10 Tissue Transglutaminase (tTG) has been identified as the endomysial antigen. Studies have demonstr- ated that endomysial IgA antibodies have over 99% specificity for gluten sensitive enteropathy. 5 Negative 0 - 5 Weak Positive 6 - 9 Positive >9 Performed at: RN - [facility] [address] [id number] [address] Superintendent: Jami Philippe MD, Phone: [phone] 6 Elevated levels of HbA1c suggest the need for more aggressive treatment of glycemia. The [place] [employer] recommends that a primary goal of therapy should be a HbA1c of <7% and that physicians should re-evaluate the treatment regimen in patients with HbA1c values consistently >8%. 7 Note: Persistent reduction for 3 months or more in an eGFR <60 mL/min/1.73 m2 defines CKD. Patients with eGFR values >/=60 mL/min/1.73 m2 may also have CKD if evidence of persistent proteinuria is present. The original MDRD equation for estimated GFR is not valid for patients less than 18 years of age. Additional information may be found at www.kdoqi.org. 8 Reference Guidelines*: Desirable: ........... < 200 mg/dL Borderline High: ..... 200-239 mg/dL High: ................ >=240 mg/dL * The National Cholesterol Education Program (NCEP) 9 Reference Guidelines*: Normal: ............. < 150 mg/dL Borderline High: .... 150-199 mg/dL High: ............... 200-499 mg/dL Very High: .......... > 500 mg/dL * Source: National Cholesterol Education Program (NCEP) 10 Reference Guidelines*: Low HDL: ..... < 40 mg/dL Normal: ..... 40-60 mg/dL Desirable: ... > 60 mg/dL *The National Cholesterol Education Program(NCEP) 11 Reference Guidelines*: Optimal:........... <100 mg/dL Near Optimal....... 100-129 mg/dL Borderline High.... 130-159 mg/dL High............... 160-189 mg/dL Very High.......... >=190 mg/dL * Source: National Cholesterol Education Program (NCEP) 12 Antibodies to HCV not detected; does not exclude early acute HCV infection. 13 F0 - No fibrosis 14 S3 - Marked or Severe Steatosis 15 N1 - Borderline or probable MATUTE 16 Quantitative results of 10 biochemicals in combination with age, gender, height, and weight, are analyzed using a computational algorithm to provide a quantitative surrogate marker (0.0-1.0) of liver fibrosis (Metavir F0-F4), hepatic steatosis (0.0-1.0, S0-S3), and Non-Alcoholic Steato- Hepatitis (MATUTE) (0.0-0.75, N0-N2). The absence of steatosis (S<0.38) precludes the diagnosis of MATUTE. Fibrosis marker: In a study of 171 Non-Alcoholic Fatty Liver Disease (NAFLD) patients where 23% had significant NAFLD fibrosis (Metavir F2-F4) and 11% had cirrhosis by liver biopsy, a fibrosis result of >0.3 yielded a sensitivity of 83% and a specificity of 78% for the detection of significant fibrosis(1). Steatosis Marker: In a population of 744 patients (583 HCV, 18 HBV, 69 NAFLD, and 74 alcoholic disease patients), where 36% had significant steatosis (>5%) on a liver biopsy, a steatosis score >0.5 had a sensitivity of 71% and a specificity of 72% for identification of significant steatosis(2). MATUTE marker: In a population of 257 NAFLD patients, where 62% had at least some MATUTE by liver biopsy, a prediction of MATUTE had a sensitivity of 88% for identifying MATUTE and a specificity of 50%(3). 17 <0.21=Stage F0 - No fibrosis 0.21 - 0.27=Stage F0 - F1 0.27 - 0.31=Stage F1 - Portal fibrosis 0.31 - 0.48=Stage F1 - F2 0.48 - 0.58=Stage F2 - Bridging fibrosis with few septa 0.58 - 0.72=Stage F3 - Bridging fibrosis with many septa 0.72 - 0.74=Stage F3 - F4 >0.74=Stage F4 - Cirrhosis 18 < 0.30=S0 - No Steatosis 0.30 to 0.38=S0 - S1 0.38 to 0.48=S1 - Minimal Steatosis 0.48 to 0.57=S1 - S2 0.57 to 0.67=S2 - Moderate Steatosis 0.67 to 0.69=S2 - S3 > 0.69=S3 - Marked or Severe Steatosis 19 0.25=N0 - Not MATUTE 0.50=N1 - Borderline or probable MATUTE 0.75=N2 - MATUTE 20 MATUTE FibroSure is recommended for patients with suspected non-alcoholic fatty liver disease. It is not recommended for patients with other liver diseases. It is also not recommended in patients with Gilbert Disease, acute hemolysis, acute viral hepatitis, drug induced hepatitis, genetic liver disease, autoimmune hepatitis and/or extra- hepatic cholestasis. Any of these clinical situations may lead to inaccurate quantitative predictions of fibrosis. 21 This test was developed and its performance characteristics determined by [facility]. It has not been cleared or approved by the Food and Drug Administration. The FDA has determined that such clearance or approval is not necessary. For questions regarding this report please contact customer service at . References: 1. Baljit Tomlin et al. Diagnostic Value of Biochemical Markers (FibroTest) for the prediction of Liver Fibrosis in patients with Non-Alcoholic Fatty Liver Disease. BMC Gastroenterology 2006; 6:6. 2. Nancy Briscoe. et al. The Diagnostic Value of Biomarkers (Steato Test) for the Prediction of Liver Steatosis. Comparative Hepatol. 2005; 4:10. 3. Nancy Briscoe, Sobeida Smiley, et al. Diagnostic value of biochemical markers (MATUTE TEST) for the prediction of non alcohol steato hepatitis in patients with non- alcoholic fatty liver disease. BMC Gastroenterology 2006; 6:34 doi:10.1186/5158-864J-1-34. Performed at: [facility] [id number] [address] Superintendent: Foster Garcia MD, Phone: [phone] 22 @#[id number] 3.5MLS YELLOW SST 23 @40YO MALE 370LBS 69 24 Instrument flagged sample for slide review. RBC morphology essentially normal. Platelet estimate=Normal Procedures Date CPT Code Description Status Comment 10/19/2017 93901 Bronchospasm Provocation Completed Evaluation Multi Spirometric Determinati 10/19/2017 61254 Spirometry Completed 10/08/2017 14077 EKG-Tracing And Report Completed 08/13/2017 26870 Radiology, Foot, Complete-3 Completed Views 08/08/2016 04629 Stress Test Interpre And Completed Report Only 08/08/2016 72313 Stress Test Physician Super Completed Only 08/08/2016 89709 Myocardial Imaging Tomographic Completed Multiple Study AT Rest Or Stress 08/07/2016 70783 Echocardiogram Complete Completed 08/07/2016 70817 Echocardiogram Complete Completed 07/31/2016 85785 EKG-Tracing And Report Completed 01/16/2014 32086 Conscious Sedation For Completed Colonsocopy 01/16/2014 Colonoscopy Completed Document: 01/16/14 - Operative Report - + polys, repeat in 5 years (2018) 01/04/2013 17886 Echocardiogram Complete Completed 01/03/2013 63742 EKG-Tracing And Report Completed 01/03/2013 34355 EKG-Tracing And Report Completed 04/23/2010 0000 Due To Insurance Completed 04/08/2010 82945 Echocardiogram Complete Completed 04/09/2009 Asp./Injection major joint Completed 02/20/2009 Asp./Injection major joint Completed Encounters Type Date Location Provider CPT E/M Dx Office Visit 08/12/2018 2:45p [facility] Benoit Hu, 12718 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 03888 E66.9 E78.2 K85.91 E11.9 G47.30 Office Visit 07/31/2016 1:00p Cardiology [place]omal Frazier ANP 19036 R07.9 R06.02 R00.2 E66.09 E78.2 Office Visit 01/03/2013 9:00a Cardiology Office Nelsy Santos, 40468 401.1 MSN, TOÑITO 278.00 272.4 V72.81 Plan of Care Future Appointment(s):11/09/2018 3:30 pm - Benoit Hu FNP at [facility]08/12/2018 - Benoit Hu FNPE11.9 Type 2 diabetes mellitus without complicationsNew Labs:LDL Cholesterol ProfileComments:Continue to follow with Dr. King changes to any medication today continue to monitor blood sugars No medication refills needed at this timeFollow up:request prior records : Dr. Law Dr. Ramonita Faye 3 months f/u 30 minR03.0 Elevated blood-pressure reading, w/o diagnosis of htnComments:discussed new recommendations:stage 1 hypertension systolic pressure 130-139 diastolic pressure 80-89.You should track your blood pressures 1 time a week, and write down the results in a blood pressurelog. You should bring this log book with you to each visit. Be sure to use the same blood pressure machine, and the same arm each time for consistency.E66.01 Morbid (severe) obesity due to excess caloriesComments:labs ordered - add in Lipids as unknown when last doneZ68.43 Body mass index (BMI) 50 -59.9, adultAllComments:Don't forget to sign up for the patient portal! Remember that it is important that you keep regularly scheduled appointments, and if you can't to call and reschedule so that we can offer the appointment slot to others. We do have a no show policy - that 3 or more missed appointments may result in discharge from the practice
[2018-09-16 12:50] VITALS: BP 126/76
--- NOTE | 2018-09-16 13:09 | UC ---
Respiratory Complaint HPI - HPI Summary HPI Summary: Patient presents to urgent care with 7 days progressive cough, wheeze, and green productive sputum. Patient states with activity he feel short of breath because of coughing fits. Patient's son is currently being treated for RSV. 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 Patient with some ear fullness sinus pressure postnasal drip. Patient has not taken any over -the-counter medication. Patient does not have a history of asthma but does get bronchitis once or twice a year. No fevers today but felt chilled 2 days ago. No nausea vomiting. Patient does report fatigue. No headache or vision changes. No other concerns. Patient's medications reviewed this visit. - History of Current Complaint Chief Complaint: UCRespiratory Stated Complaint: WHEEZY COUGH Time Seen by Provider: 09/16/18 12:52 Hx Obtained From: Patient Onset/Duration: Gradual Onset Timing: Constant Severity Initially: Mild Severity Currently: Mild Pain Intensity: 0 Character: Cough: Productive - Allergies/Home Medications Allergies/Adverse Reactions: Allergies Allergy/AdvReac Type Severity Reaction Status Date / Time No Known Allergies Allergy Verified 09/16/18 12:45 PMH/Surg Hx/FS Hx/Imm Hx Previously Healthy: Yes Endocrine History: Diabetes Other Respiratory History: acute bronchitis - Surgical History Surgical History: Yes Surgery Procedure, Year, and Place: 8 sets EAR TUBE SURGERIES R/L A CHILD, [place]. 1998; RIGHT KNEE, [facility]. 1996 TONSILECTOMY [facility]. LEFT KNEE REPAIR JANUARY 2013 [facility] - Family History Known Family History: Positive: Cardiac Disease, Hypertension, Diabetes - Social History Occupation: Employed Full-time Lives: With Family Alcohol Use: Occasionally Alcohol Amount: once a week Substance Use Type: None Smoking Status (MU): Never Smoked Tobacco Have You Smoked in the Last Year: No - Immunization History Most Recent Influenza Vaccination: no Most Recent Tetanus Shot: utd Review of Systems All Other Systems Reviewed And Are Negative: Yes ENT: Positive: Ear Ache, Sinus Congestion Respiratory: Positive: Cough, Other - wheeze Physical Exam - Summary Physical Exam Summary: Vital Signs Reviewed: Yes A+Ox3, no distress Eyes: Conjunctiva Clear, ROGELIO. EOM intact and full ENT: Hearing grossly normal TM x 2 clear, turbinates boggym mild PND mmoist, uvula midline, no exudate, no erythema Neck: Positive: Supple Respiratory: Positive: No respiratory distress, No accessory muscle use + scattered wheeze, cough sentences interrupted with cough Cardiovascular: RRR nl s1, s2 no m/r CBT <2 sec abd soft + BS nt/nd no guarding, no distension Musculoskeletal Exam: MARQUES x 4 without difficulty Strength Intact, ROM Intact Neurological: Positive: Alert, + sensation throughout Psychological: Positive: Normal Response To Family Skin: Positive: no rash, no ecchymosis Triage Information Reviewed: Yes Vital Signs: Initial Vital Signs Temp 97.1 F 09/16/18 12:46 Pulse 79 09/16/18 12:46 Resp 18 09/16/18 12:46 BP 126/76 09/16/18 12:46 Pulse Ox 98 09/16/18 12:46 UC Diagnostic Evaluation - Laboratory O2 Sat by Pulse Oximetry: 98 Re-Evaluation - Re-Evaluation First Eval Re-Evaluation Time: 13:41 Change: Improved Comment: Pt improved following neb. no cough. + BS throughout. no wheeze. Rx Abx. MDI/Nebules (pt has machine at home0. secretion precaution. hydrate. return precuation Respiratory Course/Dx - Course Course Of Treatment: Patient presents to urgent care with persistent cough productive green sputum, wheeze, and states progressive shortness of breath. 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 On exam patient with diffuse scattered wheezes and cough. Vital signs stable. We'll give DuoNeb. If improves the will likely give patient antibiotics as well as MDI. Patient declined prednisone states he doesn't like how it makes it feel as well as he is a diabetic. Patient states agreement and comfortable plan. - Differential Dx/Diagnosis Provider Diagnosis: Acute bronchitis Discharge - Sign-Out/Discharge Documenting (check all that apply): Patient Departure All imaging exams completed and their final reports reviewed: No Studies - Discharge Plan Condition: Stable Disposition: HOME Prescriptions: Albuterol 2.5MG/3ML (0.083%)* [Ventolin 2.5 MG/3 ML NEB.HALIE*] 2.5 mg INH Q4H # 30 neb.halie Albuterol HFA INHALER* [Ventolin HFA Inhaler*] 2 puff INH Q4H PRN #1 mdi PRN Reason: wheeze Amoxicillin/Clavulanate TAB* [Augmentin TAB 875*] 875 mg PO BID #20 tab Patient Education Materials: Acute Bronchitis (ED) Referrals: Ramonita Faye MD [Primary Care Provider] - Additional Instructions: -Take antibiotics exactly as prescribed until gone -Use your albuterol (nebulizer or puffer) - 2 puffs ever 4 hours for the next 2 days - then as needed -Stay well hydrated - avoid excess caffeine and all alcohol - eat regular, healthy meals - humidify the air in the room where you sleep - boil water, run a hot steam shower, vaporizer, cups of water by heat register - okay to take over the counter decongestant and cough medication -- These infections are spread by secretions - do NOT share eating or drinking utensils - clean items you share with other people such as cell phones, computer mouse, TV remote, computer tablets,etc.. Once you have been antibiotics for 2 days, change your toothbrush and your pillowcase. -Contact your doctor to arrange a follow-up appointment this week. Call your doctor, return here or go to the emergency department with any questions or concerns - Billing Disposition and Condition Condition: STABLE Disposition: Home
[2018-09-16] MEDS ORDERED: Albuterol/Ipratropium NEB.SOL* Albuterol 2.5 MG/Ipratropium 0.5 MG 3 ML INH ONE (13:10)
== END 2018-09-16 13:47 | disposition home or self-care (01) ==
LOC: UCCORT 12:37
DX: J20.9 Acute bronchitis, unspecified (principal); J34.89 Other specified disorders of nose and nasal sinuses; R09.82 Postnasal drip; H92.09 Otalgia, unspecified ear; E11.9 Type 2 diabetes mellitus without complications; Z87.09 Personal history of other diseases of the respiratory system; Z90.89 Acquired absence of other organs
CPT/HCPCS: 99212; A9270-GY; G0463

== ENCOUNTER 2019-03-26 07:38 | Emergency (ER) | payer BC ==
--- OUTSIDE RECORDS SUMMARY | 2019-03-26 07:47 | XMS REPORT | Continuity of Care Document ---
:1975 External Reference #:[id number] Author Name Lachelle Preciado Care Team Providers Name Role Phone Gwendolyn Guillen NP Care Team Information Mat Machine Tender Unavailable Benoit Hu FNP Primary Care Physician Unavailable Payers Date Identification Numbers Payment Provider Subscriber Policy Number: [id number] [employer] Azael Ramos PayID: [id number] [address] [address] [place] [address] Onset: 2012 Policy Number: [id number] [facility] Azael Beasley PayID: [id number] [address] [place] [address] Onset: 2014 Policy Number: [id number] [facility] Azael Beasley PayID: [id number] [address] [place] [address] Problems Active Problems Provider Date Body mass index 40+ - severely obese Gwendolyn Guillen NP Onset: 01/13/2019 History of polyp of colon Gwendolyn Guillen NP Onset: 01/13/2019 Family History Date Family Member(s) Observation Comments Siblings 1 age 41, brother hypertension Social History Type Date Description Comments Sex Unknown Marital Status Lives With Spouse 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 Family of 4: 16y, 6y, 4y, 9m Tobacco Use Start: Unknown Never Smoked Cigarettes Smoking Status Reviewed: 03/17/19 Never Smoked Cigarettes ETOH Use Occasionally consumes alcohol Tobacco Use Start: Unknown Patient has never smoked Allergies, Adverse Reactions, Alerts Description No Known Drug Allergies Medications Active Medications SIG Qnty Indications Ordering Provider Date GNP Cinnamon two daily Other Ordering 01/26/2019 500mg Provider Capsules Diabetes Health 1 tablet daily Other Ordering 01/26/2019 Formula Provider Tablets Glucosamine two tablets bid Other Ordering 01/26/2019 Chondroitin Complex Provider Advanced Tablets Meclizine HCL Clune, 25mg Benoit, APPLICATION CONSULTANT Tablets Metformin HCL Mc Palma MD 500mg Tablets Fenofibrate Micronized Foster Baum, APPLICATION CONSULTANT 200mg Capsules Lantus Solostar 15 units once Unknown daily. 100Unit/ML Solution Pen-Inject Proair HFA Consuelo Euceda MD 108(90Base) mcg/Act Aerosol Glyburide take two tablets Unknown 5mg Tablets by mouth twice a day History Medications Suprep Bowel Prep Kit take according to 1units Gwendolyn Guillen, 01/13/2019 - your physician's PREPARATION ROOM WORKER Unknown 17.5-3.13-1.6GM/177ML instructions the Solution day before your procedure. split the dose as directed. Percocet 1-2 po q4-6h prn 60tabs Girish Berger, 01/31/2013 - 5-325mg Tablets pain M.D. 02/20/2014 Vital Signs Date Vital Result Comment 03/17/2019 4:05pm Height 70 inches 5'10" Heart Rate 68 /min BP Systolic 129 mmHg BP Diastolic 79 mmHg O2 % BldC Oximetry 97 % 01/13/2019 3:34pm Height 70 inches 5'10" Weight 381.00 lb Heart Rate 81 /min BP Systolic 128 mmHg BP Diastolic 80 mmHg Respiratory Rate 22 /min Body Temperature 98.7 F O2 % BldC Oximetry 97 % BMI (Body Mass Index) 54.7 kg/m2 02/21/2014 3:02pm Height 70 inches 5'10" Weight 370.00 lb Heart Rate 83 /min BP Systolic 132 mmHg BP Diastolic 80 mmHg BMI (Body Mass Index) 53.1 kg/m2 Results Test Date Facility Test Result H/L Range Note Laboratory test 03/01/2019 [facility] Point of Care 110 mg/dL High 70-100 [address] [place] [address] [phone] Laboratory test 03/01/2019 [facility] Clotest SEE RESULT [address] [place] [address] [phone] Laboratory test 03/01/2019 [facility] Point of Care 120 mg/dL High 70-100 [address] [place] [address] [phone] Surgical 01/28/2013 [facility] S RUN DATE: [address] [place] [address] NOTE> [phone] Wool Spotter: [id number] 2 SEE RESULT BELOW Name: AZAEL BEASLEY : [address]: Roman Ramirez MD Acct: [id number] Unit: [id number] AGE: 43 Location: ENDO Re03/01/19 SEX: M Status: REG REF SPEC: [id number] JUAN: 03/01/19-1127 [facility] DR: Roman Ramirez MD REQ: [id number] RECD: 03/01/19-131 STATUS: RAIMUNDO WOOD DR: Benoit COBBP _ SOURCE: GAS ANTRUM [facility]: ORDERED: Clotest Procedure Result Reported Site Clotest Final 03/02/19- 0756 ML Clotest Negative * ML - Main Lab . END OF REPORT DEPARTMENT OF PATHOLOGY, [facility] [address] [place] [address] Charles Henao M.D. Director [facility] # [id number] 3 Wool Spotter: [id number] RUN DATE: 02/01/13 [facility] LAB LIVE PAGE 1 RUN TIME: 1512 [facility] [address] [place], [place] [address] Specimen Inquiry Name: AZAEL BEASLEY : [address]: Girish Berger MD Acct: [id number] Unit: [id number] AGE: 37 Location: OR Re01/28/13 SEX: M Status: PRE SDC SPEC: [id number] JUAN: 01/28/13- [facility] DR: Girish Berger MD REQ: [id number] RECD: 01/28/13 STATUS: SOUT _ ORDERED: LEVEL III FINAL DIAGNOSIS Knee, left, shavings: Hyperplastic synovium with fibrosis and myxoid change, and fragments of fibrocartilage with myxoid degeneration and neovascularization. PRE-OPERATIVE DIAGNOSIS Left knee meniscus tear GROSS DESCRIPTION The specimen is received in formalin labeled Azaeldelisa Beasley, Left Knee Shavings, and consists of a 3.5 x 2.5 cm. by up to 0.8 cm. aggregate of yellow and white tissue fragments. Rn Psychiatric sections, one cassette. Signed (signature on file) Charles Henao MD 1512 END OF REPORT * ML=Testing performed at Main Lab DEPARTMENT OF PATHOLOGY, [address] [place] [address] Charles Henao M.D. Director [facility] Permit #[id number] Procedures Date Code Description Status 03/01/2019 82029 Colonoscopy Flexible Diagnostic Completed 03/01/2019 29274 Endoscopy Upper GI Biopsy Completed 01/28/2013 37539 Arthroscopy,Knee,Meniscectomy Media & Lateral Completed 01/28/2013 23647 Arthroscopy,Knee,Meniscectomy Media & Lateral Completed 09/16/2012 26499 Rad Exam; Knee Comp Completed 09/16/2012 05611 Xray Knee 3 Views Completed Encounters Type Date Location Provider Dx Diagnosis Office Visit 01/13/2019 [facility] Gastroenterology Gwendolyn Guillen, Z01.818 Encounter for other 4:00p PREPARATION ROOM WORKER preprocedural examination Z68.43 Body mass index (BMI) 50-59.9, adult E66.01 Morbid (severe) obesity due to excess calories R19.4 Change in bowel habit Z86.010 Personal history of colonic polyps Office Visit 02/21/2014 2:45p Orthopedic Girish Berger, 836.0 Dislocation [facility]nee [facility] Tear Of Medial C.M.A. Cartilage Or Meniscus [facility] Office Visit 01/25/2013 1:30p Orthopedic Girish Berger, 844.9 Sprains [facility] Strains [facility] [place] Knee & Leg Unspec C.M.A. 836.0 Dislocation Knee Tear Of Medial Cartilage Or Meniscus Vianca 836.1 Dislocation Knee Tear Of Lateral Cartilage Or Meniscus [facility] Office Visit 10/08/2012 1:30p Orthopedic Girish Berger, 836.2 Dislocation [facility] Tear Of Cartilage C.M.A. Or Meniscus Current Other
[2019-03-26 07:55] VITALS: BP 127/78
--- NOTE | 2019-03-26 08:09 | UC ---
Throat Pain/Nasal Jeremias HPI - HPI Summary HPI Summary: 43 y/o male PMHX of DM type II and Asthma presents to the urgent care c/o sore throat, B/l ear pain, nasal congestion w/ yellowish nasal discharge for the past 2 days. Pt reports yesterday he developed a productive cough w/ yellowish phlegm and a streak of blood and this morning mild wheezing. Pt denies fever, but he has chills yesterday. Pain w/ swallowing is 7/10. He has taken allergy OTC medication w/o any improvement. Pt denies SOB, chest pain, abdominal pain, dizziness, N/V/D. - History of Current Complaint Chief Complaint: UCGeneralIllness Stated Complaint: SORE THROAT Time Seen by Provider: 03/26/19 08:07 Hx Obtained From: Patient Onset/Duration: Gradual Onset - sore throat B/L ear pain, nasal congestion, productive cough w/ yellowish phlegm, Lasting Days - 2 days, Worse Since - today Severity: Moderate Pain Intensity: 7 - sore throat/ B/L ear pain Pain Scale Used: 0-10 Numeric Cough: Sputum Appears - yellowish Associated Signs & Symptoms: Positive: Wheezing - mild this morning, Sinus Discomfort, Nasal Discharge - yellowish. Negative: Dysphagia, Fever - Epiglottits Risk Factors Epiglottis Risk Factors: Negative - Allergies/Home Medications Allergies/Adverse Reactions: Allergies Allergy/AdvReac Type Severity Reaction Status Date / Time No Known Allergies Allergy Verified 03/26/19 07:55 PMH/Surg Hx/FS Hx/Imm Hx Previously Healthy: Yes Endocrine History: Diabetes Respiratory History: Asthma - Surgical History Surgical History: Yes Surgery Procedure, Year, and Place: 8 sets EAR TUBE SURGERIES R/L A CHILD, [place]. 1998; RIGHT KNEE, [facility]. 1996 TONSILECTOMY [facility]. LEFT KNEE REPAIR JANUARY 2013 [facility] - Family History Known Family History: Positive: Cardiac Disease, Hypertension, Diabetes - Social History Occupation: Employed Full-time Lives: With Family Alcohol Use: Occasionally Alcohol Amount: once a week Substance Use Type: None Smoking Status (MU): Never Smoked Tobacco Have You Smoked in the Last Year: No - Immunization History Most Recent Influenza Vaccination: no Most Recent Tetanus Shot: utd Review of Systems All Other Systems Reviewed And Are Negative: Yes Constitutional: Positive: Chills Skin: Positive: Negative Eyes: Positive: Negative ENT: Positive: Sore Throat, Ear Ache - B/L ear pain, Nasal Discharge - yellowish , Sinus Congestion, Sinus Pain/Tenderness Respiratory: Positive: Cough - productive cough w/ yellowish phlegm today, Other - mild wheezing today Cardiovascular: Positive: Negative Gastrointestinal: Positive: Negative Genitourinary: Positive: Negative Motor: Positive: Negative Neurovascular: Positive: Negative Musculoskeletal: Positive: Negative Neurological: Positive: Negative Psychological: Positive: Negative Is Patient Immunocompromised?: No Physical Exam - Summary Physical Exam Summary: VITAL SIGNS: Reviewed. GENERAL: Patient is a well developed and nourished male who is sitting comfortable in the examining table. Patient is not in any acute respiratory distress. HEAD AND FACE: No signs of trauma. No ecchymosis, hematomas or skull depressions. No sinus tenderness. EYES: PERRLA, EOMI x 2, No injected conjunctiva, no nystagmus. No photophobia. EARS: Hearing grossly intact. Ear canals and tympanic membranes are within normal limits. MOUTH: Positive pharynx with erythema, exudates, palatal petechiae. B/L tonsillar enlargement with exudate. Uvula in midline. NECK: Supple, trachea is midline, Positive anterior cervical lymphadenopathy, no JVD, no carotid bruit, no c-spine tenderness, neck with full ROM. No meningeal signs, no Kernig's or brudzinskis signs. CHEST: Symmetric, no tenderness at palpation LUNGS: Clear to auscultation bilaterally. Left posterior lung w/ mild wheezing, no rhonchi rales or crackles. CVS: Regular rate and rhythm, S1 and S2 present, no murmurs or gallops appreciated. ABDOMEN: Soft, non-tender. No signs of distention. No rebound no guarding, and no masses palpated. Bowel sounds are normal. EXTREMITIES: FROM in all major joints, no edema, no cyanosis or clubbing. NEURO: Alert and oriented x 3. No acute neurological deficits. Speech is normal and follows commands. SKIN: Dry and warm Triage Information Reviewed: Yes Vital Signs: Initial Vital Signs Temp 96.4 F 03/26/19 07:50 Pulse 81 03/26/19 07:50 Resp 18 03/26/19 07:50 BP 127/78 03/26/19 07:50 Pulse Ox 98 03/26/19 07:50 Throat Pain/Nasal Course/Dx - Course Course Of Treatment: 43 y/o male PMHX of DM type II and Asthma presents to the urgent care c/o sore throat, B/l ear pain, nasal congestion w/ yellowish nasal discharge for the past 2 days. Pt reports yesterday he developed a productive cough w/ yellowish phlegm and a streak of blood and this morning mild wheezing. Pt denies fever, but he has chills yesterday. Pain w/ swallowing is 7/10. He has taken allergy OTC medication w/o any improvement. Pt denies SOB, chest pain, abdominal pain, dizziness, N/V/D. Hx obtained. Pt is hemodynamically stable, A&OX3, Vitals: WNL.w/ pharyngitis, left otitis media and mild wheezing in the posterior upper lung. O2Sat:98%. Pt given Duoneb Tx by the nurse. Pt tolerated well medication and lungs cleared and felt better. Rapid strep ordered: result: positive. Strep pharyngitis. Rx Amoxicillin PO and Ibuprofen PO for pain and swelling. Also to use the albuterol neb tx he has at home to alleviate wheezing. PT Advised on hand washing to avoid spreading. Also advised to rest, eat well and avoid strenuous exercise. If symptoms do not improve or worsen advised to return to the urgent care or f/u with PCP in 3 days for further evaluation and treatment. D/C instructions explained. PT understood and agreed and left clinic hemodynamically stable. - Differential Dx/Diagnosis Differential Diagnosis/HQI/PQRI: Influenza, Laryngitis, Mononucleosis, Otitis Media, Pharyngitis, Sinusitis, Tonsillitis, URI, Other - bronchitis Provider Diagnosis: Left otitis media, Strep pharyngitis, Wheezing Discharge - Sign-Out/Discharge Documenting (check all that apply): Patient Departure - D/C home All imaging exams completed and their final reports reviewed: No Studies - Discharge Plan Condition: Stable Disposition: HOME Prescriptions: Amoxicillin PO (*) [Amoxicillin 500 MG CAP*] 500 mg PO Q12H #20 cap Patient Education Materials: Strep Throat (ED), Ear Infection (ED) Referrals: Heike Hu NP [Primary Care Provider] - 3 Days Additional Instructions: 1- Please take the full course of the antibiotic to avoid resistance. Take yogurts w/ probiotics or Culturelle to protect your GI system 2-Please take ibuprofen PO q6-8hrs prn as instructed after meals to alleviate pain and swelling. Increase fluid intake, eat well, rest and avoid strenuous exercise 3- Use the albuterol neb tx q6hrs prn you have at home to alleviate mild wheezing 4-If symptoms do not improve or worsen please return to the urgent care or f/u with your PCP in 3 days for further evaluation and treatment. - Billing Disposition and Condition Condition: STABLE Disposition: Home - Attestation Statements Provider Attestation: Per institutional requirements, I have reviewed the chart, however, I was not consulted specifically or made aware of this patient by the midlevel provider. I did not personally evaluate, interact with , or disposition this patient.
[2019-03-26] MEDS ORDERED: Albuterol/Ipratropium NEB.SOL* Albuterol 2.5 MG/Ipratropium 0.5 MG 3 ML INH ONE (08:19)
== END 2019-03-26 09:01 | disposition home or self-care (01) ==
LOC: UCCORT 07:38
DX: H66.92 Otitis media, unspecified, left ear (principal); J06.0 Acute laryngopharyngitis; J45.909 Unspecified asthma, uncomplicated; B95.0 Streptococcus, group A, as the cause of diseases classified elsewhere; E11.9 Type 2 diabetes mellitus without complications
CPT/HCPCS: 87651; 99212; A9270-GY; G0463

== ENCOUNTER 2019-04-27 15:52 | Emergency (ER) | payer BC, OTHER ==
--- OUTSIDE RECORDS SUMMARY | 2019-04-27 16:01 | XMS REPORT | Continuity of Care Document ---
:1975 External Reference #:[id number] Author Name Joshua Thomas Care Team Providers Name Role Phone Benoit Hu NP Care Team Information Airline Attendant Unavailable Benoit Hu NP Primary Care Physician Unavailable Payers Date Identification Numbers Payment Provider Subscriber Policy Number: [id number] [employer] Azael Granados PayID: [id number] [address] [address] [place] [address] Problems Active Problems Provider Date Type 2 diabetes mellitus Sinan Meléndez M.D., Onset: 10/08/2017 [facility] Essential hypertension Sinan Meléndez M.D., Onset: 10/08/2017 [facility] Obesity Komal Frazier ANP Onset: 08/01/2016 Mixed hyperlipidemia Komal Frazier ANP Onset: 08/01/2016 Chronic nonalcoholic liver disease Ab Bravo MD Onset: 09/03/2016 Other diseases of stomach and Ab Bravo MD Onset: 09/03/2016 duodenum Pancreatitis Ab Bravo MD Onset: 09/03/2016 History of polyp of colon Ab Bravo MD Onset: 09/03/2016 Non-alcoholic fatty liver Benoit Hu FNP Onset: 02/15/2019 Note: Document: 02/15/19 - Limited Abdominal Sonogram Document: 02/15/19 - Abdominal U/S Large liver Benoit Hu FNP Onset: 02/15/2019 Note: mild Document: 02/15/19 - Limited Abdominal Sonogram Document: 02/15/19 - Abdominal U/S Resolved Problems Chest pain Komal Frazier ANP Onset: 08/01/2016 Resolved: 11/15/2018 Dyspnea Komal Frazier ANP Onset: 08/01/2016 Resolved: 11/15/2018 Palpitations Komal Frazier ANP Onset: 08/01/2016 Resolved: 11/15/2018 Family History Date Family Member(s) Observation Comments Father due to Diabetes () Father [...] Years) Social History Type Date Description Comments Sex Unknown Marital Status Lives With Lives With Child 4 total Home Environment Lives With Diet Patient is on a low carb diet 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 - [employer] 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 2015 every day 200mg Capsules Metformin HCL ER (Mod) 1 tab by mouth Unknown twice a day 500mg Tablets ER 24HR Glipizide 1 po bid Mc Palma MD 5mg Tablets Lantus 20 units once E11.9 Unknown 100Unit/ML daily Solution Multivitamin 1 po daily Unknown History Medications Meclizine HCL take one tablet 60tabs H81.12 Davidune, 01/11/2019 - 25mg by mouth four TOÑITO Laboy 02/21/2019 Tablets times a day as needed for vertigo Azithromycin 2 tabs today and 6tabs J20.9 Moe, Regla, 10/04/2018 - 250mg then 1 tab every PNP-BC, [employer], Ibclc 10/09/2018 Tablets day for 4 more days Flovent HFA 1 puffs twice a 36gm J20.9 Regla Rosa, 10/04/2018 - day PNP-BC, [employer], Ibclc 11/15/2018 110mcg/Act Aerosol Guaifenesin-Codeine 5ml by mouth q12 120ml J20.9 Regla Rosa, 2017 - hours as needed PNP-BC, [employer], Ibclc 10/14/2018 100-10mg/5ML Syrup cough Reference #: [id number] Benzonatate take 1 capsule 3 60caps J20.9 Regla Rosa, 10/04/2018 - 200mg times daily as PNP-BC, [employer], Ibclc 10/14/2018 Capsules needed for a cough. Prednisone 2 tabs today; 1 5tabs J20.9 Regla Rosa, 10/04/2018 - 20mg tab for 2 days; 2 PNP-BC, [employer], Ibclc 10/14/2018 Tablets days of 1/2 tab Lantus Solostar 50u subcutaneous 15units E11.9 Leta Berger M.D. 2015 - every day Unknown 100Unit/ML Solution Pen-Inject Invokana 1 by mouth every 90tabs E11.9 Leta Berger M.D. 08/18/2016 - 100mg day 08/13/2017 Tablets Humalog Kwikpen 15u before meals 15units E11.9 Leta Berger M.D. 2015 - 08/13/2017 100Unit/ML Solution Pen-Inject Multivitamins 1 po qd Unknown - Unknown Tablets Tricor one Po q day. Anisa Valdez MD - 145mg Unknown Tablets Humalog Kwikpen s/s before meals Unknown - 08/18/2016 100Unit/ML Solution Pen-Inject Lantus Solostar 30u subcutaneous Unknown - every day 08/18/2016 100Unit/ML Solution Pen-Inject Fenofibrate 1 by mouth every Unknown - 145mg day Unknown Tablets Naproxen Sodium as needed Unknown - 08/13/2017 220mg Capsules Oxycodone-Acetamino 1-2 by mouth Unknown - phen every 4 hours as Unknown 5-325mg needed for pain Tablets Ondansetron 1 by mouth every Unknown - 4mg 4 hour as needed 08/13/2017 Tablets Dispers Proair HFA Unknown - 11/15/2018 108(90Base) mcg/Act Aerosol Immunizations CPT Code Status Date Vaccine Lot # [id number] Given 10/04/2018 Influenza Vaccine (Fluzone) Age 3 And Older [id number] Vital Signs Date Vital Result Comment 02/21/2019 2:57pm BP Systolic 128 mmHg BP Diastolic 80 mmHg Heart Rate 69 /min Respiratory Rate 17 /min Height 70 inches 5'10" Weight 355.00 lb BMI (Body Mass Index) 50.9 kg/m2 BSA (Body Surface Area) 2.66 m2 [place] body weight in kilograms 75 kg O2 % BldC Oximetry 97 % 01/11/2019 2:59pm BP Systolic 144 mmHg BP Diastolic 90 mmHg Heart Rate 77 /min Respiratory Rate 19 /min Height 70 inches 5'10" Weight 379.25 lb BMI (Body Mass Index) 54.4 kg/m2 BSA (Body Surface Area) 2.74 m2 [place] body weight in kilograms 75 kg O2 % BldC Oximetry 96 % 11/15/2018 2:48pm BP Systolic Sitting Left Arm 124 mmHg BP Diastolic Sitting Left Arm 76 mmHg Heart Rate 80 /min Respiratory Rate 18 /min Height 69 inches 5'9" Weight 376.00 lb BMI (Body Mass Index) 55.5 kg/m2 BSA (Body Surface Area) 2.70 m2 [place] body weight in kilograms 73 kg 10/04/2018 1:03pm BP Systolic Sitting Left Arm 132 mmHg BP Diastolic Sitting Left Arm 78 mmHg Body Temperature 98.1 F Heart Rate 79 /min Weight 379.00 lb O2 % BldC Oximetry 97 % 08/12/2018 3:08pm BP Systolic Sitting Left Arm 138 mmHg BP Diastolic Sitting Left Arm 84 mmHg Heart Rate 88 /min Respiratory Rate 18 /min Height 69 inches 5'9" Weight 383.00 lb BMI (Body Mass Index) 56.6 kg/m2 BSA (Body Surface Area) 2.72 m2 [place] body weight in kilograms 73 kg 10/08/2017 1:51pm BP Systolic Sitting Left Arm 134 mmHg BP Diastolic Sitting Left Arm 84 mmHg Heart Rate 75 /min Respiratory Rate 14 /min Height 69 inches 5'9" Weight 340.00 lb BMI (Body Mass Index) 50.2 kg/m2 BSA (Body Surface Area) 2.59 m2 [place] body weight in kilograms 73 kg 10/06/2017 2:53pm BP Systolic Sitting Right Arm 128 mmHg BP Diastolic Sitting Right Arm 74 mmHg Heart Rate 80 /min Respiratory Rate 18 /min Height 69 inches 5'9" Weight 340.00 lb BMI (Body Mass Index) 50.2 kg/m2 BSA (Body Surface Area) 2.59 m2 [place] body weight in kilograms 73 kg O2 % BldC Oximetry 95 % room air 08/13/2017 2:42pm BP Systolic Sitting Right Arm 124 mmHg BP Diastolic Sitting Right Arm 77 mmHg Heart Rate 76 /min Height 69 inches 5'9" Weight 340.00 lb BMI (Body Mass Index) 50.2 kg/m2 BSA (Body Surface Area) 2.59 m2 [place] body weight in kilograms 73 kg 09/03/2016 11:29am BP Systolic Sitting Left Arm 122 mmHg BP Diastolic Sitting Left Arm 82 mmHg Heart Rate 82 /min Respiratory Rate 16 /min Height 69 inches 5'9" Weight 370.00 lb BMI (Body Mass Index) 54.6 kg/m2 BSA (Body Surface Area) 2.68 m2 08/18/2016 2:36pm BP Systolic 138 mmHg BP Diastolic 90 mmHg Height 69 inches 5'9" Weight 380.00 lb BMI (Body Mass Index) 56.1 kg/m2 BSA (Body Surface Area) 2.71 m2 07/31/2016 1:08pm BP Systolic Sitting Left Arm 144 mmHg BP Diastolic Sitting Left Arm 88 mmHg Heart Rate 98 /min Respiratory Rate 20 /min Height 69 inches 5'9" Weight 399.00 lb BMI (Body Mass Index) 58.9 kg/m2 BSA (Body Surface Area) 2.77 m2 01/03/2013 9:42am BP Systolic Sitting Right Arm 150 mmHg BP Diastolic Sitting Right Arm 92 mmHg Heart Rate 88 /min Respiratory Rate 18 /min Height 69 inches 5'9" Weight 379.00 lb BMI (Body Mass Index) 56.0 kg/m2 Results Test Date Facility Test Result H/L Range Note Laboratory test 03/26/20 [facility] Rapid Strep POSITIVE Abnormal Negative 1 finding 56 [phone] Molecular Laboratory test 03/01/20 [facility] Point of Care 110 mg/dL High 70-100 2 finding 91 [phone] Glucose Laboratory test 03/01/20 [facility] Clotest SEE RESULT 3 finding 35 [phone] BELOW Laboratory test 03/01/20 [facility] Point of Care 120 mg/dL High 70-100 4 finding 12 [phone] Glucose Urine Dipstick 08/12/20 [facility] Ua Leuko - Negative 18 Ua Nitrite - Negative Ua Urobilinogen - Low 0.2 - 1.0 E.U./dL Ua Protein - Negative Ua PH 6.5 6.5-7.5 Ua Blood - Negative Ua Specific [place] 1.015 1.010-1.030 Ua Ketones - Negative Ua Bilirubin - Negative Ua Glucose - Negative Celiac 10/10/2016 [facility] Immunoglobulin A 281 mg/dL Normal 90-386 [address] [place], [place] [id number] [phone] Antigliadin Abs, IgG 2 units Normal 0-19 6 Antigliadin Abs, IgA 3 units Normal 0-19 7 Endomysial IgA Antibody Negative Normal Negative t-Transglutaminase IgA <2 U/mL Normal 0-3 8 t-Transglutaminase IgG <2 U/mL Normal 0-5 9 Glycohemoglobin 10/10/2016 [facility] Glycohemoglobin 6.0 % Normal 4.2-6.[address] (A1c) [place], [place] [id number] [phone] eAG 126 mg/dL Normal CBS W/Automated 10/10/2016 [facility] White Blood 5.5 K/uL Normal 3.4-10.[address] [place] [address] [phone] Red Blood Count 5.17 M/uL Normal 4.20-5.80 Hemoglobin 14.6 gm/dL Normal 12.8-17.0 Hematocrit 45.2 % Normal 38.0-48.0 Mean Cell Volume 87.4 fl Normal 80.0-96.0 Mean Corpuscular HGB 28.2 pg Normal 27.0-33.0 Mean Corpuscular HGB Conc 32.3 g/dL Normal 31.7-36.0 Platelet Count 213 K/uL Normal 150-400 Red Cell Distri Width SD 43.3 fl Normal 36-51 Red Cell Distri Width %CV 13.9 % Normal 11.6-15.8 Mean Platelet Volume 9.7 fL Normal 6.6-10.6 Neut% 58.0 % Normal 33.0-73.0 Lymph % 31.8 % Normal 17.0-56.0 [place] % 8.4 % Normal 0.0-10.0 Eo% 1.6 % Normal 0.0-5.0 Bas% 0.2 % Normal 0.1-1.0 Neut# 3.17 K/uL Normal 1.8-7.0 Lymph # 1.74 K/uL Low 1.8-7.0 [place] # 0.46 K/uL Normal 0.0-0.8 Eos # 0.09 K/uL Normal 0.0-0.5 Baso # 0.01 K/uL Low 0.1-0.2 Laboratory 10/10/2016 [facility] Sedimentation 2 mm/hr Normal 0-15 test finding [address] [place] [address] [phone] Liver Function 10/10/2016 [facility] Total Protein 9.0 g/dL High 6.4-8.2 Tests [address] [place] [address] [phone] Albumin 4.7 g/dL Normal 3.4-5.0 Globulin 4.3 g/dL Normal 1.9-4.3 Alb/Glob 1.1 ratio Normal Bilirubin,Total 0.8 mg/dL Normal 0.2-1.0 Bilirubin,Direct 0.2 mg/dL Normal 0.0-0.2 Bilirubin,Indirect 0.6 mg/dL Normal 0.0-0.9 Sgot/Ast 23 U/L Normal 15-37 SGPT/Alt 34 U/L Normal 12-78 Alkaline Phosphatase 36 U/L Low 45-117 Basic Metabolic Panel 10/10/2016 [facility] Glucose 94 mg/dL Normal 74-106 [address] [place] [address] [phone] BUN 18 mg/dL Normal 7-18 Creatinine 1.0 mg/dL Normal 0.6-1.3 Glom Filtration Rate, Estimate >60 mL/min Normal >60 If >60 mL/min Normal >60 11 BUN/Creat 18.0 ratio Normal Sodium 139 mmol/L Normal 136-145 Potassium 3.7 mmol/L Normal 3.5-5.1 Chloride 102 mmol/L Normal 98-107 Carbon Dioxide 27 mmol/L Normal 21-32 Anion Gap 10 mEq/L Normal 8-16 Calcium 9.6 mg/dL Normal 8.5-10.1 LDL Cholesterol 10/10/2016 [facility] Cholesterol 127 mg/dL Normal <200 12 Profile [address] [place], [place] [id number] [phone] Triglycerides 136 mg/dL Normal <150 13 HDL Cholesterol 35 mg/dL Low >40 14 LDL-Cholesterol 65 mg/dL Normal < 100 15 Laboratory test finding 10/10/2016 [facility] Amylase 32 U/L Normal 25-115 [address] [place], [place] [address] [phone] Lipase 97 U/L Normal 73-393 Hepatitis C 10/10/2016 [facility] Hepatitis C Nonreactive Normal Nonreactive Antibody [address] [place] [address] [phone] Signal/Cutoff ratio < 0.02 Normal <0.80 16 Laboratory 10/10/2016 [facility] Ceruloplasmin 27.2 Normal 16.0-31.0 test finding [address] mg/dL [place], [place] [address] [phone] [place] Fibrosure 10/10/2016 [facility] Matute Fibrosis 0.13 0.00-0.[address] [place] [address] [phone] [place] Fibrosis Stage (SEE NOTE) 17 [place] Steatosis Score 0.94 High 0.00-0.30 [place] Steatosis Grade (SEE NOTE) 18 [place] Score 0.50 0.25 [place] Grade (SEE NOTE) 19 Height 69 Inches . Weight Measured 370 LBS . Analysis . Aznah-9-Quafpdcceknsg 160 mg/dL 110-276 Haptoglobin 145 mg/dL 34-200 Apolipoprotein A-1 111 mg/dL 101-178 Bilirubin,Total 0.5 mg/dL 0.0-1.2 GGT 15 IU/L 0-65 Alt (SGPT) 23 IU/L 0-55 Alt (Sgot) P5P 26 IU/L 0-40 Cholesterol,Total 130 mg/dL 100-199 Glucose, Serum 101 mg/dL High 65-99 Triglycerides 130 mg/dL 0-149 [place] Interpretations: (SEE NOTE) 20 Fibrosis Scoring (SEE NOTE) 21 Steatosis Grading (SEE NOTE) 22 [place] Scoring (SEE NOTE) 23 [place] Limitations (SEE NOTE) 24 [place] Comment 2 (SEE NOTE) 25 @Frozen: @#[id number] 3.5ML <SEE NOTE> 26 @ @MATUTE FIBROSURE @ @40YO MALE 370LB <SEE NOTE> 27 Laboratory test finding 08/13/2016 N2N/CCD Import Bedside Glucose 270 High 70-110 Laboratory test finding 08/13/2016 N2N/CCD Import Anion Gap 13 8-16 BUN/Creatinine Ratio 20.0 Blood Urea Nitrogen 14 7-18 Calcium Level 7.5 Low 8.5-10.1 Carbon Dioxide Level 26 21-32 Chloride Level 97 Low 98-107 Creatinine 0.7 0.6-1.3 Glucose Screen 306 High 74-106 Lipase 432 High 73-393 Potassium Level 3.8 3.5-5.1 Sodium Level 136 136-145 Magnesium Level 08/13/2016 N2N/CCD Import Magnesium Level 2.0 1.8-2.4 Laboratory test 08/12/2016 N2N/CCD Import Alanine Aminotransferase 36 12 -78 finding (Alt/SGPT) Albumin 2.3 Low 3.4-5.0 Albumin/Globulin Ratio [...] Blood Count 6.7 3.4-10.5 Aspartate Amino 08/12/2016 N2N/CCD Import Aspartate Amino 29 15-37 Transf Transf (Ast/Sgot) (Ast/Sgot) C-Reactive 08/12/2016 N2N/CCD Import C-Reactive 436.0 High <3.0 Protein, Protein, Quantitative Quantitative Respiratory 08/11/2016 N2N/CCD Import Respiratory Respiratory Culture Culture Annette Urine Legionella 08/11/2016 N2N/CCD Import Urine Legionella Negative Negative pneumophilia Ag pneumophilia Ag Laboratory test 08/11/2016 N2N/CCD Import Basophils # 0.01 Low 0.1-0.2 finding (Auto) Basophils (%) (Auto) 0.2 0.1-1.0 Eosinophils # (Auto) 0.01 0.0-0.5 Eosinophils (%) (Auto) 0.2 0.0-5.0 Lymphocytes (%) (Auto) 13.7 Low 17.0-56.0 Monocytes # (Auto) 0.62 0.0-0.8 Monocytes (%) (Auto) 9.4 0.0-10.0 Neutrophils (%) (Auto) 76.5 High 33.0-73.0 Red Cell Distribution Width 45.0 36-51 Lymphocytes # 08/11/2016 N2N/CCD Import Lymphocytes # 0.90 Low 1.8-7.0 (Auto) (Auto) Neutrophils # 08/11/2016 N2N/CCD Import Neutrophils # 5.04 1.8-7.0 (Auto) (Auto) Total Creatine 08/10/2016 N2N/CCD Import Total Creatine 167 39-308 Kinase Kinase Urine Blood 08/10/2016 N2N/CCD Import Urine Blood Trace Negative Urine Clarity 08/10/2016 N2N/CCD Import Urine Clarity Clear Clear Urine Specific 08/10/2016 N2N/CCD Import Urine Specific 1.020 1.010- 1.030 [place] Laboratory test 08/10/2016 N2N/CCD Import Hemoglobin A1c 10.6 High 4.2- 6.3 finding Estimated Average 08/10/2016 N2N/CCD Import Estimated Average 258 Glucose (eAG) Glucose (eAG) Ray Test 08/10/2016 N2N/CCD Import Ray Test Yes Lactic Acid Level 08/10/2016 N2N/CCD Import Lactic Acid Level 1.3 0.4- 1.9 Anaerobic Blood 08/10/2016 N2N/CCD Import Anaerobic Blood No Culture Culture Growth: Final Report Aerobic Blood 08/10/2016 N2N/CCD Import Aerobic Blood No Culture Culture Growth: Final Report Arterial Blood 08/10/2016 N2N/CCD Import Arterial Blood -2 -2-2 Base Excess Base Excess Arterial Blood 08/10/2016 N2N/CCD Import Arterial Blood 23 22-26 Hco3 Hco3 Arterial Blood 08/10/2016 N2N/CCD Import Arterial Blood 89 Low 90-99 Oxygen Saturation Oxygen Saturation Arterial Blood 08/10/2016 N2N/CCD Import Arterial Blood 41 35-45 pCO2 at Patient pCO2 at Patient Temp Temp Arterial Blood pH 08/10/2016 N2N/CCD Import Arterial Blood pH 7.37 7.35- 7.45 at Patient Temp at Patient Temp Arterial Blood pO2 08/10/2016 N2N/CCD Import Arterial Blood 53 Low 80- 105 at Patient Temp pO2 at Patient Temp Blood Gas Puncture 08/10/2016 N2N/CCD Import Blood Gas L.Rad.Art Site Puncture Site . Blood Gas Specimen 08/10/2016 N2N/CCD Import Blood Gas Room Air Type Specimen Type Miscellaneous Test 08/10/2016 N2N/CCD Import Miscellaneous Test(s) Comment Test Comment added Cholesterol Level 08/10/2016 N2N/CCD Import Cholesterol Level 503 High < 200 Platelet Estimate 08/10/2016 N2N/CCD Import Platelet Estimate 207 Pathologist Review 08/10/2016 N2N/CCD Import Pathologist Indicated (Hematology) Review ,Slide (Hematology) Sent Metamyelocytes % 08/10/2016 N2N/CCD Import Metamyelocytes % 2 High -0 Manual Slide 08/10/2016 N2N/CCD Import Manual Slide See Note 28 Review Review (Hematology) (Hematology) Lymphocytes % 08/10/2016 N2N/CCD Import Lymphocytes % 15 Low 17-56 Differential Total 08/10/2016 N2N/CCD Import Differential 100 Cells Counted Total Cells Counted Atypical 08/10/2016 N2N/CCD Import Atypical 5 0-7 Lymphocytes % Lymphocytes % Laboratory test 08/10/2016 N2N/CCD Import Band Neutrophils 42 High 0-8 finding % Neutrophils % 36 33-73 Urine Bilirubin Small High Negative Urine Color DK Yellow Yellow Urine Ketones 15 High Negative Urine Leukocyte Esterase Negative Negative Urine Nitrite Negative Negative Urine Protein Negative Negative Urine Urobilinogen 0.2 0.2-1.0 Urine pH 5.5 Low 6.5-7.5 Triglycerides Level 08/10/2016 N2N/CCD Import Triglycerides Level 3119 High <150 HDL Cholesterol 08/10/2016 N2N/CCD Import HDL Cholesterol 39 Low >40 1 Kiln Placer: [id number] 2 Kiln Placer: [id number] 3 SEE RESULT BELOW Name: AZAEL GRANADOS : [address]: Roman Ramirez MD Acct: [id number] Unit: [id number] AGE: 43 Location: ENDO Re03/01/19 SEX: M Status: REG REF SPEC: [id number] JUAN: 03/01/19-[address] [facility] [address]: Roman Ramirez MD REQ: [id number] RECD: 03/01/19 STATUS: RAIMUNDO WOOD DR: Benoit Hu [employer] _ SOURCE: GAS ANTRUM SPDESC: ORDERED: Clotest Procedure Result Reported Site Clotest Final 03/02/19- 0756 ML Clotest Negative * ML - Main Lab . END OF REPORT DEPARTMENT OF PATHOLOGY, [address] [place] [address] Charles Henao M.D. Director [facility] # [id number] 4 Kiln Placer: [id number] 5 K76.0 K31.89 E78.2 E11.9 R53.83 6 Negative 0 - 19 Weak Positive 20 - 30 Moderate to Strong Positive >30 7 Negative 0 - 19 Weak Positive 20 - 30 Moderate to Strong Positive >30 8 Negative 0 - 3 Weak Positive 4 - 10 Positive >10 Tissue Transglutaminase (tTG) has been identified as the endomysial antigen. Studies have demonstr- ated that endomysial IgA antibodies have over 99% specificity for gluten sensitive enteropathy. 9 Negative 0 - 5 Weak Positive 6 - 9 Positive >9 Performed at: - [facility] [id number] Student Worker: Jami Philippe MD, Phone: [phone] Elevated levels of HbA1c suggest the need for more aggressive treatment of glycemia. The [place] [employer] recommends that a primary goal of therapy should be a HbA1c of <7% and that physicians should re-evaluate the treatment regimen in patients with HbA1c values consistently >8%. 11 Note: Persistent reduction for 3 months or more in an eGFR <60 mL/min/1.73 m2 defines CKD. Patients with eGFR values >/=60 mL/min/1.73 m2 may also have CKD if evidence of persistent proteinuria is present. The original MDRD equation for estimated GFR is not valid for patients less than 18 years of age. Additional information may be found at www.kdoqi.org. 12 Reference Guidelines*: Desirable: ........... < 200 mg/dL Borderline High: ..... 200-239 mg/dL High: ................ >=240 mg/dL * The National Cholesterol Education Program (NCEP) 13 Reference Guidelines*: Normal: ............. < 150 mg/dL Borderline High: .... 150-199 mg/dL High: ............... 200-499 mg/dL Very High: .......... > 500 mg/dL * Source: National Cholesterol Education Program (NCEP) 14 Reference Guidelines*: Low HDL: ..... < 40 mg/dL Normal: ..... 40-60 mg/dL Desirable: ... > 60 mg/dL *The National Cholesterol Education Program(NCEP) 15 Reference Guidelines*: Optimal:........... <100 mg/dL Near Optimal....... 100-129 mg/dL Borderline High.... 130-159 mg/dL High............... 160-189 mg/dL Very High.......... >=190 mg/dL * Source: National Cholesterol Education Program (NCEP) 16 Antibodies to HCV not detected; does not exclude early acute HCV infection. 17 F0 - No fibrosis 18 S3 - Marked or Severe Steatosis 19 N1 - Borderline or probable MATUTE 20 Quantitative results of 10 biochemicals in combination [...] identifying MATUTE and a specificity of 50%(3). 21 <0.21=Stage F0 - No fibrosis 0.21 - 0.27=Stage F0 - F1 0.27 - 0.31=Stage F1 - Portal fibrosis 0.31 - 0.48=Stage F1 - F2 0.48 - 0.58=Stage F2 - Bridging fibrosis with few septa 0.58 - 0.72=Stage F3 - Bridging fibrosis with many septa 0.72 - 0.74=Stage F3 - F4 >0.74=Stage F4 - Cirrhosis 22 < 0.30=S0 - No Steatosis 0.30 to 0.38=S0 - S1 0.38 to 0.48=S1 - Minimal Steatosis 0.48 to 0.57=S1 - S2 0.57 to 0.67=S2 - Moderate Steatosis 0.67 to 0.69=S2 - S3 > 0.69=S3 - Marked or Severe Steatosis 23 0.25=N0 - Not MATUTE 0.50=N1 - Borderline or probable MATUTE 0.75=N2 - MATUTE 24 MATUTE FibroSure is recommended for patients with suspected non-alcoholic fatty liver disease. It is not recommended for patients with other liver diseases. It is also not recommended in patients with Gilbert Disease, acute hemolysis, acute viral hepatitis, drug induced hepatitis, genetic liver disease, autoimmune hepatitis and/or extra- hepatic cholestasis. Any of these clinical situations may lead to inaccurate quantitative predictions of fibrosis. 25 This test was developed and its performance characteristics determined by [facility]. It has not been cleared or approved by the Food and Drug Administration. The FDA has determined that such clearance or approval is not necessary. For questions regarding this report please contact customer service at . References: 1. Baljit Schmidt al. Diagnostic Value of Biochemical Markers (FibroTest) [...] fatty liver disease. BMC Gastroenterology 2006; 6:34 doi:10.1186/7629-034C-8-34. Performed at: [facility] [id number] Student Worker: Foster Garcia MD, Phone: [phone] 26 @#[id number] 3.5MLS YELLOW SST 27 @40YO MALE 370LBS 69 28 Instrument flagged sample for slide review. RBC morphology essentially normal. Platelet estimate=Normal Procedures Date Code Description Status 01/26/2019 60986 Event Monitor Inter/Review Only Completed 10/04/2018 31786 Pulse Oximetry Completed 10/19/2017 64252 Bronchospasm Provocation Evaluation Multi Spirometric Completed Determinati 10/19/2017 18826 Spirometry Completed 10/08/2017 40807 EKG-Tracing And Report Completed 08/13/2017 13819 Radiology, Foot, Complete-3 Views Completed 08/08/2016 03091 Stress Test Interpre And Report Only Completed 08/08/2016 26241 Stress Test Physician Super Only Completed 08/08/2016 02159 Myocardial Imaging Tomographic Multiple Study AT Rest Completed Or Stress 08/07/2016 98470 Echocardiogram Complete Completed 08/07/2016 85485 Echocardiogram Complete Completed 07/31/2016 24559 EKG-Tracing And Report Completed 01/16/2014 66465 Conscious Sedation For Colonsocopy Completed 01/16/2014 [id number] Colonoscopy Completed 01/04/2013 54296 Echocardiogram Complete Completed 01/03/2013 56301 EKG-Tracing And Report Completed 01/03/2013 79331 EKG-Tracing And Report Completed 04/23/2010 0000 Due To Insurance Completed 04/08/2010 82810 Echocardiogram Complete Completed 04/09/2009 Asp./Injection major joint Completed 02/20/2009 Asp./Injection major joint Completed Encounters Type Date Location Provider Dx Diagnosis Office Visit 02/21/2019 Family Medicine [place], E11.9 Type 2 diabetes 3:[address] [place], mellitus without [employer] complications R19.05 Periumbilic swelling, mass or lump E66.01 Morbid (severe) obesity due to excess calories K76.0 Fatty (change of) liver, not elsewhere classified Office Visit 01/11/2019 2:45p Family Medicine Benoit Hu, R55 [address] [employer] collapse H81.12 Benign paroxysmal vertigo, left ear R19.05 Periumbilic swelling, mass or lump Office Visit 11/15/2018 Family Fritz, E11.9 Type 2 diabetes 2:45p Medicine [place], [employer] mellitus without RD complications E66.01 Morbid (severe) obesity due to excess calories I10 Essential (primary) hypertension H61.21 Impacted cerumen, right ear Z68.43 Body mass index (BMI) 50-59.9, adult Office Visit 10/04/2018 1:00p Family Medicine Regla Rosa, J20.9 Acute bronchitis, [place] RD PNP-BC, [employer], unspecified Ibclc Z23 Encounter for immunization Office Visit 10/08/2017 2:00p Cardiology Sinan Meléndez E66.9 Obesity, Office Yonatan Oliveira, FACC unspecified E11.9 Type 2 diabetes mellitus without complications I10 Essential (primary) hypertension R06.02 Shortness of breath Office Visit 10/06/2017 3:00p Pulmonology Yousif Snell MD J41.0 Simple chronic bronchitis J45.20 Mild intermittent asthma, uncomplicated G47.33 Obstructive sleep apnea (adult) (pediatric) Office Visit 08/13/2017 Orthopaedic Sonal Guaman, M72.2 Plantar fascial 2:30p Office PA fibromatosis Office Visit 09/03/2016 EMIR Bravo MD K85.91 Acute pancreatitis 11:00a with uninfected necrosis, unspecified E78.2 Mixed hyperlipidemia E66.9 Obesity, unspecified K76.0 Fatty (change of) liver, not elsewhere classified K31.89 Other diseases of stomach and duodenum Z86.010 Personal history of colonic polyps Office Visit 08/18/2016 2:30p Endocrinology Leta Berger, E66.9 Obesity, M.D. unspecified E78.2 Mixed hyperlipidemia K85.91 Acute pancreatitis with uninfected necrosis, unspecified E11.9 Type 2 diabetes mellitus without complications G47.30 Sleep apnea, unspecified Office Visit 07/31/2016 1:00p Cardiology Office Komal Frazier R07.9 Chest pain, A., ANP unspecified R06.02 Shortness of breath R00.2 Palpitations E66.09 Other obesity due to excess calories E78.2 Mixed hyperlipidemia Office Visit 01/03/2013 Cardiology Nelsy Santos 401.1 Hypertension 9:00a Office ALYSA Dejesus, Benign [employer] 278.00 Obesity Unspec 272.4 Hyperlipidemia Other Unspec V72.81 Examination Preoperative Cardiovascular Plan of Treatment Future Appointment(s):04/19/2019 4:00 pm - Chris Alfredo MD at [facility] RD05/03/2019 3:30 pm - Mc Langley MD at GI06/09/2019 3:30 pm - [place] Hu FNP at [facility] 02/21/2019 - [place] Hu FNPE11.9 Type 2 diabetes mellitus without complicationsComments: medication list updated - as you continue to lose weight, your lantus may need to be adjusted down further. Continue to follow up with no bake molder as scheduled.Follow up:3-4 months for f/uR19.05 Periumbilic swelling, mass or lumpComments:Discussed U/S results at above.May be lipoma (fatty tumor) will do watchful waiting.E66.01 Morbid (severe) obesity due to excess caloriesComments: YOU ARE DOING FABULOUS!!!! KEEP UP THE EXCELLENT WORK.K76.0 Non-alcoholic fatty liverComments:Discussed results of ultrasound, need for GI follow up - will see Dr. Ramirez as scheduledFollow up:please fax results of Ultrasound as well s labs from Dr. Bravo 10/10/16
[2019-04-27 16:07] VITALS: BP 124/66
--- NOTE | 2019-04-27 16:44 | UC ---
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 Pt states that as he was holding student , his left toes were caught in door and his left knee went opposite direction of foot/toes. Pt had meniscus surgery on left knee previously. - History of Current Complaint Chief Complaint: UCLowerExtremity Stated Complaint: WC-LEFT KNEE INJURY Time Seen by Provider: 04/27/19 16:05 Hx Obtained From: Patient Onset/Duration: Sudden Onset, Still Present Severity Initially: Mild Severity Currently: Mild Pain Intensity: 3 Character: Dull, Aching, Stiffness Aggravating Factor(s): Movement Alleviating Factor(s): Rest Associated Signs And Symptoms: Positive: Swelling Able to Bear Weight: Yes - Risk Factors Septic Arthritis Risk Factor: Negative Gout Risk Factor: Male, Obesity - Allergies/Home Medications Allergies/Adverse Reactions: Allergies Allergy/AdvReac Type Severity Reaction Status Date / Time No Known Allergies Allergy Verified 04/27/19 16:08 PMH/Surg Hx/FS Hx/Imm Hx Previously Healthy: Yes - Surgical History Surgical History: Yes Surgery Procedure, Year, and Place: 8 sets EAR TUBE SURGERIES R/L A CHILD, [place]. 1998; RIGHT KNEE, [facility]. 1996 TONSILECTOMY [facility]. LEFT KNEE REPAIR JANUARY 2013 [facility] - Family History Known Family History: Positive: None, Cardiac Disease, Hypertension, Diabetes - Social History Occupation: Employed Full-time Lives: With Family Alcohol Use: Occasionally Alcohol Amount: once a week Substance Use Type: None Smoking Status (MU): Never Smoked Tobacco Have You Smoked in the Last Year: No - Immunization History Most Recent Influenza Vaccination: no Most Recent Tetanus Shot: utd Vaccination Up to Date: Yes Review of Systems All Other Systems Reviewed And Are Negative: Yes Constitutional: Positive: Negative Skin: Positive: Negative Eyes: Positive: Negative ENT: Positive: Negative Respiratory: Positive: Negative Cardiovascular: Positive: Negative Gastrointestinal: Positive: Negative Genitourinary: Positive: Negative Motor: Positive: Decreased ROM - c/o pain with ROM Neurovascular: Positive: Negative Musculoskeletal: Positive: Arthralgia, Decreased ROM - pain with ROM, Myalgia Neurological: Positive: Negative Psychological: Positive: Negative Is Patient Immunocompromised?: No Physical Exam Triage Information Reviewed: Yes Appearance: Well-Appearing Vital Signs: Initial Vital Signs Temp 98.1 F 04/27/19 16:02 Pulse 79 04/27/19 16:02 Resp 16 04/27/19 16:02 BP 124/66 04/27/19 16:02 Pulse Ox 89 04/27/19 16:02 Vital Signs Reviewed: Yes Eye Exam: Normal ENT Exam: Normal ENT: Positive: Hearing grossly normal Dental Exam: Normal Neck exam: Normal Respiratory: Positive: No respiratory distress Musculoskeletal: Positive: Other: - c/o pain with ROM Neurological Exam: Normal Psychological Exam: Normal Skin Exam: Normal Diagnostics - Radiology No standard instances Radiology Interpretation Completed By: Radiologist - IMPRESSION: 1. No evidence of fracture. 2. Moderate joint effusion. 3. Osteoarthropathy as above. Knee Pain Course/Dx - Differential Dx/Diagnosis Differential Diagnosis/HQI/PQRI: Dislocation, Sprain, Strain Provider Diagnosis: Right knee pain Discharge - Sign-Out/Discharge Documenting (check all that apply): Patient Departure All imaging exams completed and their final reports reviewed: No Studies - Discharge Plan Condition: Stable Disposition: HOME Patient Education Materials: Knee Sprain (ED), R.I.C.E. Treatment (ED) Referrals: Deborah Villalobos MD [Medical Doctor] - As Soon As Possible Heike Hu NP [Primary Care Provider] - If Needed - Billing Disposition and Condition Condition: STABLE Disposition: Home
== END 2019-04-27 17:04 | disposition home or self-care (01) ==
LOC: UCCORT 15:52
DX: M25.562 Pain in left knee (principal)
CPT/HCPCS: 99211; G0463

== ENCOUNTER 2019-09-16 08:13 | Emergency (ER) | payer BC, OTHER ==
[2019-09-16 08:26] VITALS: BP 133/73
--- NOTE | 2019-09-16 08:49 | UC ---
Ear Complaint HPI - HPI Summary HPI Summary: 43 yo diabetic with 3 day history of cough, sore throat and increasing left ear pain. He has a hx of recurrent bronchitis and would like to treat early based on his history. He had bronchitis about 2 months ago, responded well to amoxicilln and inhaler. Excellent diabetes last control, last a1c was under 5. - History of Current Complaint Chief Complaint: UCGeneralIllness Stated Complaint: UPPER RESPIRATORY,LT EAR Time Seen by Provider: 09/16/19 08:42 Hx Obtained From: Patient Onset/Duration: Gradual Onset, Lasting Days Severity Initially: Mild Severity Currently: Mild Pain Intensity: 0 Aggravating Factors: Nothing Alleviating Factors: Nothing Associated Signs/Symptoms: Positive: URI Symptoms - Allergies/Home Medications Allergies/Adverse Reactions: Allergies Allergy/AdvReac Type Severity Reaction Status Date / Time No Known Allergies Allergy Verified 09/16/19 08:26 PMH/Surg Hx/FS Hx/Imm Hx - Additional Past Medical History Additional PMH: morbid obesity Endocrine History: Diabetes - Surgical History Surgical History: Yes Surgery Procedure, Year, and Place: 8 sets EAR TUBE SURGERIES R/L A CHILD, [place]. 1998; RIGHT KNEE, [facility]. 1996 TONSILECTOMY [facility]. LEFT KNEE REPAIR JANUARY 2013 [facility] - Family History Known Family History: Positive: Cardiac Disease, Hypertension, Diabetes - Social History Occupation: Employed Full-time Lives: With Family Alcohol Use: Occasionally Alcohol Amount: once a week Substance Use Type: None Smoking Status (MU): Never Smoked Tobacco Have You Smoked in the Last Year: No - Immunization History Most Recent Influenza Vaccination: no Most Recent Tetanus Shot: utd Vaccination Up to Date: Yes Review of Systems All Other Systems Reviewed And Are Negative: Yes Constitutional: Positive: Chills, Fatigue Skin: Positive: Negative Eyes: Positive: Negative ENT: Positive: Sore Throat, Ear Ache, Sinus Congestion Respiratory: Positive: Shortness Of Breath, Cough Cardiovascular: Positive: Negative Gastrointestinal: Positive: Negative Genitourinary: Positive: Negative Motor: Positive: Negative Neurovascular: Positive: Negative Musculoskeletal: Positive: Negative Neurological: Positive: Negative Psychological: Positive: Negative Is Patient Immunocompromised?: No Physical Exam Triage Information Reviewed: Yes Appearance: No Pain Distress, Ill-Appearing, Obese Vital Signs: Initial Vital Signs Temp 97.0 F 09/16/19 08:22 Pulse 78 09/16/19 08:22 Resp 16 09/16/19 08:22 BP 133/73 09/16/19 08:22 Pulse Ox 95 09/16/19 08:22 Eyes: Positive: Conjunctiva Clear ENT: Positive: Pharyngeal erythema, TM dull - left serous otitis Neck: Positive: Supple, Nontender, No Lymphadenopathy Cardiovascular: Positive: RRR, No Murmur Musculoskeletal Exam: Normal Neurological: Positive: Alert Psychological Exam: Normal Skin Exam: Normal Ear Complaint Course/Dx - Course Course Of Treatment: amoxicillin for treatment of upper respiratory symptoms based on his hx of bronchitis and diabetes. - Differential Dx/Diagnosis Differential Diagnosis/HQI/PQRI: Bronchitis, Otitis Media, Pharyngitis, URI Provider Diagnosis: Left serous otitis media, Sinusitis Discharge ED - Sign-Out/Discharge Documenting (check all that apply): Patient Departure All imaging exams completed and their final reports reviewed: No Studies - Discharge Plan Condition: Stable Disposition: HOME Prescriptions: Amoxicillin PO (*) [Amoxicillin 875 MG (*)] 875 mg PO BID #20 tab Patient Education Materials: Sinusitis (ED) Referrals: Heike Hu NP [Primary Care Provider] - Additional Instructions: Ensure that you take the full course of antibiotic treatment. Use your albuterol inhaler as needed if wheeze develops. Follow up if you have increasing shortness of breath or fever. - Billing Disposition and Condition Condition: STABLE Disposition: Home
== END 2019-09-16 09:02 | disposition home or self-care (01) ==
LOC: UCCORT 08:13
DX: H65.92 Unspecified nonsuppurative otitis media, left ear (principal); J32.9 Chronic sinusitis, unspecified; R06.02 Shortness of breath; R05 Cough; E66.01 Morbid (severe) obesity due to excess calories; E11.9 Type 2 diabetes mellitus without complications
CPT/HCPCS: 99212; G0463

== ENCOUNTER 2019-10-22 16:17 | Emergency (ER) | payer BC ==
--- NOTE | 2019-10-22 17:02 | UC ---
Respiratory Complaint HPI - HPI Summary HPI Summary: 43 yo diabetic with hx of recurrent bronchitis, currently on Tamiflu for postive flu exposure, which he is taking bid. He has felt more unwell today, with cough productive of sputum and increased awareness of wheeze. Feels unwell and fatigued, but children have been unwell and sleep has been fragmented. blood sugar increased to 140 this morning, which is high for him. Was treated with amoxicillin one month ago for dx of bronchitis. - History of Current Complaint Stated Complaint: COUGH/CONGESTION Time Seen by Provider: 10/22/19 16:59 Hx Obtained From: Patient Onset/Duration: Gradual Onset, Lasting Days Timing: Constant Severity Initially: Mild Severity Currently: Moderate Character: Cough: Productive Aggravating Factors: Exertion, Recumbent Position Alleviating Factors: Nothing Associated Signs And Symptoms: Positive: Dyspnea, Fever, URI, Nasal Congestion - Risk Factors Pulmonary Embolism Risk Factors: Negative Cardiac Risk Factors: Negative Pseudomonas Risk Factors: Negative - Allergies/Home Medications Allergies/Adverse Reactions: Allergies Allergy/AdvReac Type Severity Reaction Status Date / Time No Known Allergies Allergy Verified 10/22/19 17:04 PMH/Surg Hx/FS Hx/Imm Hx Endocrine History: Diabetes, Dyslipidemia - Surgical History Surgical History: Yes Surgery Procedure, Year, and Place: 8 sets EAR TUBE SURGERIES R/L A CHILD, [place]. 1998; RIGHT KNEE, [facility]. 1996 TONSILECTOMY [facility]. LEFT KNEE REPAIR JANUARY 2013 [facility] - Family History Known Family History: Positive: None, Cardiac Disease, Hypertension, Diabetes - Social History Occupation: Employed Full-time Lives: With Family Alcohol Use: Occasionally Alcohol Amount: once a week Substance Use Type: None Smoking Status (MU): Never Smoked Tobacco Have You Smoked in the Last Year: No - Immunization History Most Recent Influenza Vaccination: no Most Recent Tetanus Shot: utd Vaccination Up to Date: Yes Review of Systems All Other Systems Reviewed And Are Negative: Yes Constitutional: Positive: Fever, Fatigue Skin: Positive: Negative Eyes: Positive: Negative ENT: Positive: Sinus Congestion Respiratory: Positive: Cough Cardiovascular: Positive: Negative Gastrointestinal: Positive: Negative Genitourinary: Positive: Negative Motor: Positive: Negative Neurovascular: Positive: Negative Musculoskeletal: Positive: Negative Neurological: Positive: Negative Psychological: Positive: Negative Is Patient Immunocompromised?: No Physical Exam Triage Information Reviewed: Yes Appearance: Ill-Appearing, Obese Eyes: Positive: Conjunctiva Clear ENT: Positive: Pharyngeal erythema, TMs normal Neck: Positive: Supple, Nontender, No Lymphadenopathy Respiratory: Positive: Normal breath sounds, No respiratory distress, Wheezing Cardiovascular Exam: Normal Musculoskeletal Exam: Normal Neurological Exam: Normal Skin Exam: Normal Respiratory Course/Dx - Course Course Of Treatment: On preventative for influenza, with progression of wheeze and malaise. Discussed treatment with antibiotic due to suspected secondary infection with hx of diabetes. - Differential Dx/Diagnosis Differential Diagnosis/HQI/PQRI: Influenza, Lower Resp Infection, Sinusitis Provider Diagnosis: Bronchitis Discharge ED - Sign-Out/Discharge Documenting (check all that apply): Patient Departure All imaging exams completed and their final reports reviewed: No Studies - Discharge Plan Condition: Stable Disposition: HOME Prescriptions: Amoxicillin PO (*) [Amoxicillin 875 MG (*)] 875 mg PO BID #14 tab Patient Education Materials: Acute Bronchitis (ED) Referrals: Heike Hu NP [Primary Care Provider] - Additional Instructions: Although it is possible that your increased symptoms are due to influenza, the increased productive cough is possibly a secondary bacterial infection. Complete the course of tamiflu, and use albuterol as needed for wheezing. Take the full course of amoxicillin for treatment. Ensure high intake of fluids. - Billing Disposition and Condition Condition: STABLE Disposition: Home
[2019-10-22 17:08] VITALS: BP 135/85
== END 2019-10-22 17:37 | disposition home or self-care (01) ==
LOC: UCCORT 16:17
DX: J40 Bronchitis, not specified as acute or chronic (principal); E11.9 Type 2 diabetes mellitus without complications
CPT/HCPCS: 99212; G0463